=== PATIENT | female | born 1965 | race American Indian/Alaskan Native ===

== ENCOUNTER 2019-03-31 14:38 | Inpatient (IN) | payer MEDICAID ==
[2019-03-31] MEDS ORDERED: ZOFRAN IV ONE ×2 (15:20→17:45)
[2019-03-31] MEDS ORDERED: NACL 0.9% 1000 ML 1,000 ML IV ONE (15:20)
--- NOTE | 2019-03-31 15:20 | Event Note ---
ED Screening Note ED Screening Note: severe upper abd pain and diarrhea; also n/v tachy no cig/drugs/ etoh pmh pud ulcer bleed htn diverticu c diff UC fecal transplant failed x 2 psh g bypass back 10 rx norvasc clonodine lisinopril/hctz remoron hs ambien hs protonix carafate This initial assessment/diagnostic orders/clinical plan/treatment(s) is/are subject to change based on patients health status, clinical progression and re- assessment by fellow clinical providers in the ED. Further treatment and workup at subsequent clinical providers discretion. Patient/guardian urged not to elope from the ED as their condition may be serious if not clinically assessed and managed. Initial orders include: labs urine
[2019-03-31 15:42] LABS: Basophils % (Auto) 0.3 % (0.0-1.8); Eosinophils # (Auto) 0.1 K/mm3 (0.0-0.4); Eosinophils % (Auto) 1.7 % (0.0-4.3); Hematocrit 43.1 % (30.3-42.9); Hemoglobin 14.3 gm/dl (10.1-14.3); Lymphocytes # (Auto) 0.9 K/mm3 (1.2-5.4); Lymphocytes % (Auto) 17.8 % (13.4-35.0); Mean Corpuscular HGB Conc 33 % (30-34); Mean Corpuscular Volume 102 fl (79-97); Monocytes # (Auto) 0.3 K/mm3 (0.0-0.8); Monocytes % (Auto) 4.9 % (0.0-7.3); Platelet Count 324 K/mm3 (140-440); Red Blood Count 4.23 M/mm3 (3.65-5.03); Red Cell Distribution Width 17.1 % (13.2-15.2)
[2019-03-31 16:05] LABS: Alanine Aminotransferase 22 units/L (7-56); Albumin 4.3 g/dL (3.9-5); BUN/Creatinine Ratio 9; Blood Urea Nitrogen 8 mg/dL (7-17); Calcium 9.9 mg/dL (8.4-10.2); Hemolysis Index 25
[2019-03-31 16:24] LABS: Bilirubin,Direct < 0.2 mg/dL (0-0.2)
[2019-03-31 16:52] LABS: Bilirubin,Urine NEG (Negative); Blood,Urine NEG (Negative); Color,Urine Yellow (Yellow); Protein,Urine <15 mg/dL mg/dL (Negative); Urobilinogen,Urine < 2.0 mg/dL (<2.0)
[2019-03-31] MEDS ORDERED: MORPHINE IV ONE ×2 (17:45→21:50)
--- NOTE | 2019-03-31 18:28 | Emergency Department Report ---
ED Abdominal Pain HPI - General Chief Complaint: Abdominal Pain Stated Complaint: STOMACH PAIN/VOMITTING/DIARRHEA Time Seen by Provider: 03/31/19 15:17 Source: patient Mode of arrival: Ambulatory Limitations: No Limitations - History of Present Illness Initial Comments: Pt is a 53 yo female who presents to the ED with c/o upper abdominal pain that began a week ago. She has associated N/V/D. She states for the last two days she has had black, tarry stools. she states she is having approximately 14-15 episodes of diarrhea per day. 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 Pt states that she spoke with Dr. Day, bariatric surgery who recommended for her to be evaluated in the ED. Severity scale (0 -10): 3 - Related Data Home Medications Medication Instructions Recorded Confirmed Last Taken ALPRAZolam [Xanax TAB] 0.5 mg PO TID PRN 04/01/19 04/01/19 Unknown Carafate 04/01/19 Unknown Lisinopril [Zestril TAB] 1 tab PO DAILY 04/01/19 04/01/19 Unknown Mirtazapine [Remeron 15mg TAB] 15 mg PO QHS 04/01/19 04/01/19 Unknown Ondansetron [Zofran TAB] 1 tab PO PRN 04/01/19 Unknown Oxycodone HCl/Acetaminophen 1 each PO Q6HR PRN 04/01/19 04/01/19 Unknown [Percocet 10/325 mg] Pantoprazole [Protonix INJ] 40 mg IV BID 04/01/19 04/01/19 Unknown Promethazine [Phenergan] 25 mg PO Q6HR PRN 04/01/19 04/01/19 Unknown Zolpidem [Ambien] 10 mg PO QHS 04/01/19 04/01/19 Unknown Allergies Allergy/AdvReac Type Severity Reaction Status Date / Time hydralazine Allergy Unknown Verified 03/31/19 14:41 NSAIDS (Non-Steroidal Allergy Unknown Verified 03/31/19 14:41 Anti-Inflamma tramadol Allergy Unknown Verified 03/31/19 14:41 metronidazole [From Flagyl] AdvReac Vomiting Verified 03/31/19 15:17 ED Review of Systems ROS: Stated complaint: STOMACH PAIN/VOMITTING/DIARRHEA Other details as noted in HPI Comment: All other systems reviewed and negative ED Past Medical Hx - Past Medical History Hx Hypertension: Yes - Surgical History Additional Surgical History: back, gastric bypass - Social History Smoking Status: Never Smoker Substance Use Type: None - Medications Home Medications: Home Medications Medication Instructions Recorded Confirmed Last Taken Type ALPRAZolam [Xanax TAB] 0.5 mg PO TID PRN 04/01/19 04/01/19 Unknown History Carafate 04/01/19 Unknown History Lisinopril [Zestril TAB] 1 tab PO DAILY 04/01/19 04/01/19 Unknown History Mirtazapine [Remeron 15mg TAB] 15 mg PO QHS 04/01/19 04/01/19 Unknown History Ondansetron [Zofran TAB] 1 tab PO PRN 04/01/19 Unknown History Oxycodone HCl/Acetaminophen 1 each PO Q6HR PRN 04/01/19 04/01/19 Unknown History [Percocet 10/325 mg] Pantoprazole [Protonix INJ] 40 mg IV BID 04/01/19 04/01/19 Unknown History Promethazine [Phenergan] 25 mg PO Q6HR PRN 04/01/19 04/01/19 Unknown History Zolpidem [Ambien] 10 mg PO QHS 04/01/19 04/01/19 Unknown History ED Physical Exam - General Limitations: No Limitations General appearance: alert, in no apparent distress - Head Head exam: Present: atraumatic, normocephalic - Eye Eye exam: Present: normal appearance - ENT ENT exam: Present: mucous membranes dry (mildly) - Respiratory Respiratory exam: Present: normal lung sounds bilaterally. Absent: respiratory distress, wheezes, rales, rhonchi, stridor, chest wall tenderness, accessory muscle use, decreased breath sounds, prolonged expiratory - Cardiovascular Cardiovascular Exam: Present: normal rhythm, tachycardia (mildly ), normal heart sounds. Absent: systolic murmur, diastolic murmur, rubs, gallop - GI/Abdominal GI/Abdominal exam: Present: soft, tenderness (epigastric and LUQ), normal bowel sounds. Absent: distended, guarding, rebound, rigid - Rectal Rectal exam: Present: normal inspection, normal rectal tone, heme (+) stool, other (green/dark stool present in the rectal vault, no bright red blood present, hemocult (+) for blood, no external or internal hemorrhoids, talk show host: ALVINA cedeño). Absent: hemorrhoids, mass - Neurological Exam Neurological exam: Present: alert, oriented X3 - Psychiatric Psychiatric exam: Present: normal affect, normal mood - Skin Skin exam: Present: warm, dry, intact ED Course Vital Signs 03/31/19 03/31/19 03/31/19 15:17 20:57 21:08 Temperature 97.4 F L Pulse Rate 124 H 102 H Respiratory 20 18 18 Rate Blood Pressure Blood Pressure 181/119 187/120 [Right] O2 Sat by Pulse 99 100 Oximetry 03/31/19 03/31/19 21:58 21:59 Temperature Pulse Rate 82 Respiratory 16 Rate Blood Pressure 168/92 Blood Pressure 168/92 [Right] O2 Sat by Pulse 97 Oximetry - Consultations Consultation #1: 03/31/19 18:27 spoke with the PA for Dr. Day, bariatric surgery who states that Dr. James, bariatric surgery is who did her Geoff-en-Y and if surgical consultation was needed related to her Geoff-en-Y then Dr. James would need to be consulted. Consultation #2: 03/31/19 21:[address] Moreno, GI who advised to give IV protonix and to admit to the hospitalist and will consult on patient in the morning. Consultation #3: 03/31/19 21:[address] Grant, hospitalist who recommended to lower patients blood pressure and will accept and resume care of patient and admit patient to the hospital ED Medical Decision Making - Lab Data Result diagrams: 03/31/19 23:04 03/31/19 15:30 Lab Results 03/31/19 03/31/19 03/31/19 Range/Units 13:55 15:30 15:30 WBC 5.3 (4.5-11.0) K/mm3 RBC 4.23 (3.65-5.03) M/mm3 Hgb 14.3 (10.1-14.3) gm/dl Hct 43.1 H (30.3-42.9) % MCV 102 H (79-97) fl MCH 34 H (28-32) pg MCHC 33 (30-34) % RDW 17.1 H (13.2-15.2) % Plt Count 324 (140-440) K/mm3 Lymph % (Auto) 17.8 (13.4-35.0) % [place] % (Auto) 4.9 (0.0-7.3) % Eos % (Auto) 1.7 (0.0-4.3) % Baso % (Auto) 0.3 (0.0-1.8) % Lymph # 0.9 L (1.2-5.4) K/mm3 [place] # 0.3 (0.0-0.8) K/mm3 Eos # 0.1 (0.0-0.4) K/mm3 Baso # 0.0 (0.0-0.1) K/mm3 Seg Neutrophils % 75.3 H (40.0-70.0) % Seg Neutrophils # 4.0 (1.8-7.7) K/mm3 Sodium 134 L (137-145) mmol/L Potassium 4.1 (3.6-5.0) mmol/L Chloride 98.4 (98-107) mmol/L Carbon Dioxide 19 L (22-30) mmol/L Anion Gap 21 mmol/L BUN 8 (7-17) mg/dL Creatinine 0.9 (0.7-1.2) mg/dL Estimated GFR > 60 ml/min BUN/Creatinine Ratio 9 % Glucose 115 H (65-100) mg/dL Calcium 9.9 (8.4-10.2) mg/dL Total Bilirubin 0.20 (0.1-1.2) mg/dL Direct Bilirubin < 0.2 (0-0.2) mg/dL Indirect Bilirubin 0.0 mg/dL AST 39 (5-40) units/L ALT 22 (7-56) units/L Alkaline Phosphatase 188 H (35-129) units/L Total Protein 8.2 (6.3-8.2) g/dL Albumin 4.3 (3.9-5) g/dL Albumin/Globulin Ratio 1.1 % Lipase 23 (13-60) units/L Urine Color Yellow (Yellow) Urine Turbidity Clear (Clear) Urine pH 6.0 (5.0-7.0) Ur Specific [place] 1.013 (1.003-1.030) Urine Protein <15 mg/dl (Negative) mg/dL Urine Glucose (UA) Neg (Negative) mg/dL Urine Ketones Neg (Negative) mg/dL Urine Blood Neg (Negative) Urine Nitrite Neg (Negative) Urine Bilirubin Neg (Negative) Urine Urobilinogen < 2.0 (<2.0) mg/dL Ur Leukocyte Esterase Mod (Negative) Urine WBC (Auto) 1.0 (0.0-6.0) /HPF Urine RBC (Auto) 2.0 (0.0-6.0) /HPF U Epithel Cells (Auto) 1.0 (0-13.0) /HPF Vital Signs 03/31/19 03/31/19 03/31/19 15:17 20:57 21:08 Temperature 97.4 F L Pulse Rate 124 H 102 H Respiratory 20 18 18 Rate Blood Pressure Blood Pressure 181/119 187/120 [Right] O2 Sat by Pulse 99 100 Oximetry 03/31/19 03/31/19 21:58 21:59 Temperature Pulse Rate 82 Respiratory 16 Rate Blood Pressure 168/92 Blood Pressure 168/92 [Right] O2 Sat by Pulse 97 Oximetry - Radiology Data Radiology results: report reviewed PROCEDURE: CT ABDOMEN PELVIS W CON TECHNIQUE: Computerized axial tomography of the abdomen and pelvis was performed after the IV injection of iodinated nonionic contrast. CT DOSE LENGTH PRODUCT: 1263.6 mGycm HISTORY: upper abd pain, hx of PUD, Gastric bypass, c-diff COMPARISONS: None . FINDINGS: Lower Lung sanchez: Minimal linear atelectasis seen in the lung bases. Ztxgc-ql-bcjtuxse sized pericardial effusion appears to be partially visualized. Upper Abdomen: Gallbladder is surgically absent. The liver, adrenal glands, the pancreas and spleen are unremarkable. Postsurgical changes seen in the stomach and a loop of bowel in the left mi d abdomen. There may have been previous gastric bypass surgery. Gastric mucosal folds mildly prominent. I cannot exclude gastritis. Kidneys, Ureters and Urinary bladder: No abnormalities are seen. Retroperitoneum: Abdominal aorta appears normal. Nonspecific subcentimeter lymph nodes are seen in the retroperitoneum. No pathologically enlarged lymph nodes are identified. Bowel: Rectum appears to be fluid-filled and otherwise unremarkable. No evidence of bowel obstruction. No ascites or free intraperitoneal gas is seen. Normal-appearing appendix is seen in the right lower quadrant. Reproductive organs: Uterus and adnexa show no focal abnormalities. Other: Postsurgical changes visualized in the lumbar spine at the L5-S1 level. Spacing devices in place. There appears to have been prior fusion procedure at this level. Schmorl's is also seen superior endplate L1 level. IMPRESSION: Uukrp-jz-yweuoxxy sized pericardial effusion appears to be partially visualized. Prior cholecystectomy. Previous gastric bypass surgery suspected. Gastric mucosal folds appear prominent. I cannot exclude gastritis. No other abnormalities are identified. This document is electronically signed by Edenilson Oliva MD., Mar 31 2019 10:20:49 PM ET - Medical Decision Making Pt is a 53 yo female who presents to the ED with c/o upper abdominal pain that began a week ago. She has associated N/V/D. She states for the last two days she has had black, tarry stools. she states she is having approximately 14-15 episodes of diarrhea per day. 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 Pt states that she spoke with Dr. Day, bariatric surgery who recommended for her to be evaluated in the ED. hemoccult was positive. CT abd pelvis shows Sewuu-we-tceflomj sized pericardial effusion appears to be partially visualized. Prior cholecystectomy. Previous gastric bypass surgery suspected. Gastric mucosal folds appear prominent. I cannot exclude gastritis. No other abnormalities are identified. spoke with Dr. Moreno, GI who will consult on patient in AM and advised to give 40 mg of protonix IV. Discussed with Dr. Grant, hospitalist who will admit pt to the hospital and accept and resume care of patient, advised to order Cdiff and place pt on contact precautions. Critical care attestation.: If time is entered above; I have spent that time in minutes in the direct care of this critically ill patient, excluding procedure time. ED Disposition Clinical Impression: Pericardial effusion, Heme positive stool, Nausea vomiting and diarrhea Abdominal pain Qualifiers: Abdominal location: upper abdomen, unspecified Qualified Code(s): R10.10 - Upper abdominal pain, unspecified Gastritis Qualifiers: Gastritis type: unspecified gastritis Chronicity: acute Gastritis bleeding: with bleeding Qualified Code(s): K29.01 - Acute gastritis with bleeding Disposition: OP ADMIT IP TO THIS HOSP Is pt being admited?: Yes Does the pt Need Aspirin: No Condition: Stable Time of Disposition: 21:54
[2019-03-31] MEDS ORDERED: ALUM-MAG HYDROX-SIMETH 200-200-20MG/5ML PO ONE (19:31)
[2019-03-31] MEDS ORDERED: LIDOCAINE VISCOUS 2% PO ONE (19:31)
[2019-03-31] MEDS ORDERED: BENTYL PO ONE ×2 (19:32→21:00)
--- NOTE | 2019-03-31 21:22 | Cat Scan Report ---
PROCEDURE: CT ABDOMEN PELVIS W CON TECHNIQUE: Computerized axial tomography of the abdomen and pelvis was performed after the IV inject ion of iodinated nonionic contrast. CT DOSE LENGTH PRODUCT: 1263.6 mGycm HISTORY: upper abd pain, hx of PUD, Gastric bypass, c-diff COMPARISONS: None . FINDINGS: Lower Lung sanchez: Minimal linear atelectasis seen in the lung bases. Jqtwl-er-lzyepuyl sized perica rdial effusion appears to be partially visualized. Upper Abdomen: Gallbladder is surgically absent. The liver, adrenal glands, the pancreas and spleen are unremarkable. Postsurgical changes seen in the stomach and a loop of bowel in the left mid abdome n. There may have been previous gastric bypass surgery. Gastric mucosal folds mildly prominent. I can not exclude gastritis. Kidneys, Ureters and Urinary bladder: No abnormalities are seen. Retroperitoneum: Abdominal aorta appears normal. Nonspecific subcentimeter lymph nodes are seen in the retroperitoneum. No pathologically enlarged ly mph nodes are identified. Bowel: Rectum appears to be fluid-filled and otherwise unremarkable. No evidence of bowel obstructio n. No ascites or free intraperitoneal gas is seen. Normal-appearing appendix is seen in the right low er quadrant. Reproductive organs: Uterus and adnexa show no focal abnormalities. Other: Postsurgical changes visualized in the lumbar spine at the L5-S1 level. Spacing devices in [place]. There appears to have been prior fusion procedure at this level. Schmorl's is also seen superior endplate L1 level. IMPRESSION: Blfup-er-vankqcky sized pericardial effusion appears to be partially visualized. Prior cholecystectomy. Previous gastric bypass surgery suspected. Gastric mucosal folds appear prominent. I cannot exclude gastritis. No other abnormalities are identified. This document is electronically signed by Edenilson Oliva MD., Mar 31 2019 10:20:49 PM ET
[2019-03-31] MEDS ORDERED: PROTONIX IV ONE (21:44)
[2019-03-31] MEDS ORDERED: NORMODYNE IV ONE (21:47)
[2019-03-31] MEDS ORDERED: TYLENOL PO PRN (22:46)
[2019-03-31] MEDS ORDERED: ZOFRAN IV PRN (22:46)
[2019-03-31] MEDS ORDERED: MORPHINE IV PRN (22:51)
[2019-03-31 23:22] LABS: Hematocrit 38.5 % (30.3-42.9); Hemoglobin 12.5 gm/dl (10.1-14.3)
--- NOTE | 2019-03-31 23:36 | History and Physical Report ---
History of Present Illness Date of examination: 03/31/19 Date of admission: 03/31/19 22:46 Chief complaint: Upper abdominal pain History of present illness: Patient is a 53-year-old -[place] female with history of celiac disease and multiple GI problems including C. difficile colitis, who presented to the ED on account of 5 days' history of epigastric pain. She described it as sharp in character, rated 10 over 10, nonradiating and constant in duration. Pain is worse with oral intake and no known relieving factors. She has associated diarrhea times multiple episodes, passage of dark tarry stool, nausea with vomiting, palpitation, generalized weakness, headaches and dizziness. No chest pain, shortness of breath, fever, chills, syncope or loss of consciousness. Past History Past Medical History: hypertension, other (colitis, diverticulitis, celiac disease, C. difficile colitis, small bowel obstruction) Past Surgical History: Other (status post fecal implants 2, back surgery, g astric bypass, left wrist surgery) Social history: no significant social history (patient denies tobacco, alcohol or illicit drug use) Family history: other (grandmother from colon cancer in her 60s) Medications and Allergies Allergies Allergy/AdvReac Type Severity Reaction Status Date / Time hydralazine Allergy Unknown Verified 03/31/19 14:41 NSAIDS (Non-Steroidal Allergy Unknown Verified 03/31/19 14:41 Anti-Inflamma tramadol Allergy Unknown Verified 03/31/19 14:41 metronidazole [From Flagyl] AdvReac Vomiting Verified 03/31/19 15:17 Active Meds: Active Medications Acetaminophen (Tylenol) 650 mg PO Q4H PRN PRN Reason: Pain MILD(1-3)/Fever >100.5/WRAY Hydromorphone HCl (Dilaudid) 1 mg IV Q3H PRN PRN Reason: Pain , Severe (7-10) Sodium Chloride (Nacl 0.9% 1000 Ml) 1,000 mls @ 100 mls/hr IV DIRECT THEO Labetalol HCl (Normodyne) 10 mg IV Q4H PRN PRN Reason: Blood Pressure Ondansetron HCl (Zofran) 4 mg IV Q4H PRN PRN Reason: Nausea And Vomiting Pantoprazole Sodium (Protonix) 40 mg IV BID THEO Promethazine HCl (Phenergan) 25 mg [place] Q6H PRN PRN Reason: Nausea And Vomiting Sodium Chloride (Sodium Chloride Flush Syringe 10 Ml) 10 ml IV BID THEO Sodium Chloride (Sodium Chloride Flush Syringe 10 Ml) 10 ml IV PRN PRN PRN Reason: LINE FLUSH Zolpidem Tartrate (Ambien) 5 mg PO QHS PRN PRN Reason: Insomnia Review of Systems All systems: negative (except as documented in the HPI, 14 point system reviewed were negative) Exam - Constitutional Vitals: Temp Pulse Resp BP Pulse Ox 97.4 F L 82 16 168/92 97 03/31/19 15:17 03/31/19 21:59 03/31/19 21:59 03/31/19 21:59 03/31/19 21:59 General appearance: Present: no acute distress - EENT Eyes: Present: PERRL, EOM intact ENT: hearing intact, clear oral mucosa - Neck Neck: Present: supple - Respiratory Respiratory effort: normal Respiratory: bilateral: CTA - Cardiovascular Rhythm: regular Heart Sounds: Present: S1 & S2 - Extremities Extremities: No edema Peripheral Pulses: within normal limits - Abdominal General gastrointestinal: Present: soft, tender (epigastric), non-distended, normal bowel sounds Female genitourinary: Present: deferred - Integumentary Integumentary: Present: clear, warm, dry - Musculoskeletal Musculoskeletal: strength equal bilaterally - Psychiatric Psychiatric: appropriate mood/affect, intact judgment & insight - Neurologic Neurologic: CNII-XII intact Results - Labs CBC & Chem 7: 03/31/19 23:04 03/31/19 15:30 Labs: Laboratory Last Values WBC 5.3 K/mm3 (4.5-11.0) 03/31/19 15:30 RBC 4.23 M/mm3 (3.65-5.03) 03/31/19 15:30 Hgb 12.5 gm/dl (10.1-14.3) 03/31/19 23:04 Hct 38.5 % (30.3-42.9) 03/31/19 23:04 MCV 102 fl (79-97) H 03/31/19 15:30 MCH 34 pg (28-32) H 03/31/19 15:30 MCHC 33 % (30-34) 03/31/19 15:30 RDW 17.1 % (13.2-15.2) H 03/31/19 15:30 Plt Count 324 K/mm3 (140-440) 03/31/19 15:30 Lymph % (Auto) 17.8 % (13.4-35.0) 03/31/19 15:30 [place] % (Auto) 4.9 % (0.0-7.3) 03/31/19 15:30 Eos % (Auto) 1.7 % (0.0-4.3) 03/31/19 15:30 Baso % (Auto) 0.3 % (0.0-1.8) 03/31/19 15:30 Lymph # 0.9 K/mm3 (1.2-5.4) L 03/31/19 15:30 [place] # 0.3 K/mm3 (0.0-0.8) 03/31/19 15:30 Eos # 0.1 K/mm3 (0.0-0.4) 03/31/19 15:30 Baso # 0.0 K/mm3 (0.0-0.1) 03/31/19 15:30 Seg Neutrophils % 75.3 % (40.0-70.0) H 03/31/19 15:30 Seg Neutrophils # 4.0 K/mm3 (1.8-7.7) 03/31/19 15:30 Sodium 134 mmol/L (137-145) L 03/31/19 15:30 Potassium 4.1 mmol/L (3.6-5.0) 03/31/19 15:30 Chloride 98.4 mmol/L (98-107) 03/31/19 15:30 Carbon Dioxide 19 mmol/L (22-30) L 03/31/19 15:30 21 mmol/L 03/31/19 15:30 BUN 8 mg/dL (7-17) 03/31/19 15:30 0.9 mg/dL (0.7-1.2) 03/31/19 15:30 Estimated GFR > 60 ml/min 03/31/19 15:30 9 % 03/31/19 15:30 Glucose 115 mg/dL (65-100) H 03/31/19 15:30 Calcium 9.9 mg/dL (8.4-10.2) 03/31/19 15:30 0.20 mg/dL (0.1-1.2) 03/31/19 15:30 < 0.2 mg/dL (0-0.2) 03/31/19 15:30 0.0 mg/dL 03/31/19 15:30 AST 39 units/L (5-40) 03/31/19 15:30 ALT 22 units/L (7-56) 03/31/19 15:30 188 units/L (35-129) H 03/31/19 15:30 8.2 g/dL (6.3-8.2) 03/31/19 15:30 4.3 g/dL (3.9-5) 03/31/19 15:30 1.1 % 03/31/19 15:30 23 units/L (13-60) 03/31/19 15:30 Yellow (Yellow) 03/31/19 13:55 Clear (Clear) 03/31/19 13:55 6.0 (5.0-7.0) 03/31/19 13:55 Ur Specific [place] 1.013 (1.003-1.030) 03/31/19 13:55 <15 mg/dl mg/dL (Negative) 03/31/19 13:55 Neg mg/dL (Negative) 03/31/19 13:55 Neg mg/dL (Negative) 03/31/19 13:55 Neg (Negative) 03/31/19 13:55 Neg (Negative) 03/31/19 13:55 Neg (Negative) 03/31/19 13:55 < 2.0 mg/dL (<2.0) 03/31/19 13:55 Ur Leukocyte Esterase Mod (Negative) 03/31/19 13:55 1.0 /HPF (0.0-6.0) 03/31/19 13:55 2.0 /HPF (0.0-6.0) 03/31/19 13:55 U Epithel Cells (Auto) 1.0 /HPF (0-13.0) 03/31/19 13:55 Assessment and Plan Assessment and plan: Melena -On IV Protonix -H/H stable, will monitor and transfuse patient as needed -GI consulted in the ED Intractable Epigastric pain -Probably due to gastritis -CT abdomen/pelvis suspicious for gastritis and smallermoderate pericardial effusion -On IV Protonix and when necessary narcotics Intractable nausea and vomiting -On PRN antiemetics Hypertensive urgency -On when necessary IV antihypertensive, will monitor blood pressure Acute on chronic diarrhea -Status post fecal Implants 2 with failure -We will check C. difficile toxin -Contact isolation Smallmoderate pericardial effusion per imaging -Further evaluation with echocardiogram Acute metabolic acidosis -On IV fluid, will monitor bicarbonate level Mild hyponatremia -On IV fluid, will monitor sodium level DVT prophylaxis with SCD Disposition: For discharge when medically stable Time spent: 38 minutes
[2019-04-01] MEDS: ZOFRAN IV PRN ×3 (01:21→15:03)
[2019-04-01] MEDS: DILAUDID IV PRN ×4 (01:21→11:16)
[2019-04-01] MEDS: NORMODYNE IV PRN ×2 (01:22→21:51)
[2019-04-01] MEDS: AMBIEN PO PRN ×2 (01:23→23:42)
[2019-04-01] MEDS: NACL 0.9% 1000 ML 1,000 ML IV SCH ×2 (02:23→15:03)
[2019-04-01] MEDS: SODIUM CHLORIDE FLUSH SYRINGE 10 ML IV PRN (04:16)
[2019-04-01 06:54] LABS: Hematocrit 35.5 % (30.3-42.9); Hemoglobin 11.7 gm/dl (10.1-14.3)
[2019-04-01 07:14] LABS: BUN/Creatinine Ratio 17; Blood Urea Nitrogen 10 mg/dL (7-17); Calcium 8.9 mg/dL (8.4-10.2); Hemolysis Index 10
--- NOTE | 2019-04-01 09:59 | Gastroenterology Consultation ---
History of Present Illness - Reason for Consult Consult date: 04/01/19 epigastric pain, melena Requesting physician: MANISHA HALL - History of Present Illness This is a 53 yo female on whom I have been consulted for evaluation of epigastric pain, melena, and nausea/vomiting/diarrhea. 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 She reports having had chronic abdominal pain, nausea/vomiting, and diarrhea since her bypass surgery. She has had multiple admissions and ED visits at multiple different hospitals over the years. States she had worsening abdominal pain since Wednesday along with persistent diarrhea with intermittent hematochezia and black tarry stools. In the ED, she had CT abdomen showing possible gastritis and pericardial effusion. She denies chest pain, sob. She states she has been following up with Dr. Day for bariatric surgery and discussed revision of her gastric bypass. Per chart review, patient is well known to [facility] and was seen by Dr. Euegne in the past with last visit in 05/2017 noted a hospital admission for opioid overdose and stopping tincture of opium. She had had extensive work up for diarrhea and refractory to many medications including Viberzi (elevated LFTs), imodium, lomotil, welchol, questran, and creon. She states she had two fecal transplants for recurrent C diff with last one in 08/[address] [facility]. She also had multiple EGDs for her abdominal pain as well as a diagnostic lap with Dr. James in 2013 showing normal findings other than narrowing at the GE ju nction. EGDs did not show stenosis. Reports having EGD a few months ago and was told that she had multiple ulcers. Past History Past Medical History: GERD, hypertension, other (colitis, diverticulitis, celiac disease, C. difficile colitis, small bowel obstruction) Past Surgical History: Other (status post fecal implants 2, back surgery, gastric bypass, left wrist surgery) Social history: no significant social history (patient denies tobacco, alcohol or illicit drug use) Family history: other (grandmother from colon cancer in her 60s) Medications and Allergies Allergies Allergy/AdvReac Type Severity Reaction Status Date / Time hydralazine Allergy Unknown Verified 03/31/19 14:41 NSAIDS (Non-Steroidal Allergy Unknown Verified 03/31/19 14:41 Anti-Inflamma tramadol Allergy Unknown Verified 03/31/19 14:41 metronidazole [From Flagyl] AdvReac Vomiting Verified 03/31/19 15:17 Home Medications Medication Instructions Recorded Confirmed Last Taken Type ALPRAZolam [Xanax TAB] 0.5 mg PO TID PRN 04/01/19 04/01/19 Unknown History Carafate 04/01/19 Unknown History Lisinopril [Zestril TAB] 1 tab PO DAILY 04/01/19 04/01/19 Unknown History Mirtazapine [Remeron 15mg TAB] 15 mg PO QHS 04/01/19 04/01/19 Unknown History Ondansetron [Zofran TAB] 1 tab PO PRN 04/01/19 Unknown History Oxycodone HCl/Acetaminophen 1 each PO Q6HR PRN 04/01/19 04/01/19 Unknown History [Percocet 10/325 mg] Pantoprazole [Protonix INJ] 40 mg IV BID 04/01/19 04/01/19 Unknown History Promethazine [Phenergan] 25 mg PO Q6HR PRN 04/01/19 04/01/19 Unknown History Zolpidem [Ambien] 10 mg PO QHS 04/01/19 04/01/19 Unknown History Active Meds: Active Medications Acetaminophen (Tylenol) 650 mg PO Q4H PRN PRN Reason: Pain MILD(1-3)/Fever >100.5/WRAY Al Hydrox/Mg Hydrox/Simethicone (Alum-Mag Hydrox-Simeth [phone]/5ml) 15 ml PO Q4H PRN PRN Reason: Indigestion Hydromorphone HCl (Dilaudid) 1 mg IV Q3H PRN PRN Reason: Pain , Severe (7-10) Last Admin: 04/01/19 07:48 Dose: 1 mg Documented by: Sodium Chloride (Nacl 0.9% 1000 Ml) 1,000 mls @ 100 mls/hr IV DIRECT THEO Last Admin: 04/01/19 02:23 Dose: 100 mls/hr Documented by: Labetalol HCl (Normodyne) 10 mg IV Q4H PRN PRN Reason: Blood Pressure Last Admin: 04/01/19 01:22 Dose: 10 mg Documented by: Ondansetron HCl (Zofran) 4 mg IV Q4H PRN PRN Reason: Nausea And Vomiting Last Admin: 04/01/19 07:48 Dose: 4 mg Documented by: Pantoprazole Sodium (Protonix) 40 mg IV BID THEO Promethazine HCl (Phenergan) 25 mg ME Q6H PRN PRN Reason: Nausea And Vomiting Sodium Chloride (Sodium Chloride Flush Syringe 10 Ml) 10 ml IV BID THEO Sodium Chloride (Sodium Chloride Flush Syringe 10 Ml) 10 ml IV PRN PRN PRN Reason: LINE FLUSH Last Admin: 04/01/19 04:16 Dose: 10 ml Documented by: Zolpidem Tartrate (Ambien) 5 mg PO QHS PRN PRN Reason: Insomnia Last Admin: 04/01/19 01:23 Dose: 5 mg Documented by: Review of Systems - Review of Systems All systems: negative Constitutional: weight loss Cardiovascular: no chest pain Respiratory: no cough Gastrointestinal: abdominal pain, nausea, vomiting, diarrhea, melena, hematochezia Neurological: weakness Psychiatric: anxiety Exam - Constitutional Vital Signs: Temp Pulse Resp BP Pulse Ox 97.8 F 86 16 148/84 99 04/01/19 05:52 04/01/19 05:52 04/01/19 05:52 04/01/19 05:52 04/01/19 05:52 General appearance: no acute distress - EENT Eyes: EOM intact ENT: hearing intact, clear oral mucosa - Neck Neck: supple - Respiratory Respiratory effort: normal Respiratory: bilateral: CTA - Cardiovascular Rhythm: regular Heart Sounds: Present: S1 & S2 Extremities: pulses intact - Gastrointestinal General gastrointestinal: Present: soft, tender, non-distended - Integumentary Integumentary: Present: clear, warm - Neurologic Neurological: alert and oriented x3 - Psychiatric Psychiatric: agitated - Labs CBC & Chem 7: 04/01/19 06:14 04/01/19 06:14 Lab Results: Laboratory Results - last 24 hr 03/31/19 03/31/19 03/31/19 13:55 15:30 15:30 WBC 5.3 RBC 4.23 Hgb 14.3 Hct 43.1 H MCV 102 H MCH 34 H MCHC 33 RDW 17.1 H Plt Count 324 Lymph % (Auto) 17.8 [place] % (Auto) 4.9 Eos % (Auto) 1.7 Baso % (Auto) 0.3 Lymph # 0.9 L [place] # 0.3 Eos # 0.1 Baso # 0.0 Seg Neutrophils % 75.3 H Seg Neutrophils # 4.0 Sodium 134 L Potassium 4.1 Chloride 98.4 Carbon Dioxide 19 L Anion Gap 21 BUN 8 Creatinine 0.9 Estimated GFR > 60 BUN/Creatinine Ratio 9 Glucose 115 H Calcium 9.9 Total Bilirubin 0.20 Direct Bilirubin < 0.2 Indirect Bilirubin 0.0 AST 39 ALT 22 Alkaline Phosphatase 188 H Total Protein 8.2 Albumin 4.3 Albumin/Globulin Ratio 1.1 Lipase 23 Urine Color Yellow Urine Turbidity Clear Urine pH 6.0 Ur Specific [place] 1.013 Urine Protein <15 mg/dl Urine Glucose (UA) Neg Urine Ketones Neg Urine Blood Neg Urine Nitrite Neg Urine Bilirubin Neg Urine Urobilinogen < 2.0 Ur Leukocyte Esterase Mod Urine WBC (Auto) 1.0 Urine RBC (Auto) 2.0 U Epithel Cells (Auto) 1.0 03/31/19 04/01/19 04/01/19 23:04 06:14 06:14 WBC RBC Hgb 12.5 11.7 Hct 38.5 35.5 MCV MCH MCHC RDW Plt Count Lymph % (Auto) [place] % (Auto) Eos % (Auto) Baso % (Auto) Lymph # [place] # Eos # Baso # Seg Neutrophils % Seg Neutrophils # Sodium 140 Potassium 3.6 Chloride 104.2 Carbon Dioxide 22 Anion Gap 17 BUN 10 Creatinine 0.6 L Estimated GFR > 60 BUN/Creatinine Ratio 17 Glucose 103 H Calcium 8.9 Total Bilirubin Direct Bilirubin Indirect Bilirubin AST ALT Alkaline Phosphatase Total Protein Albumin Albumin/Globulin Ratio Lipase Urine Color Urine Turbidity Urine pH Ur Specific [place] Urine Protein Urine Glucose (UA) Urine Ketones Urine Blood Urine Nitrite Urine Bilirubin Urine Urobilinogen Ur Leukocyte Esterase Urine WBC (Auto) Urine RBC (Auto) U Epithel Cells (Auto) - Imaging CT Scan: report reviewed Assessment and Plan This is a 53 yo female on whom I have been consulted for evaluation of epigastric pain, melena, and nausea/vomiting/diarrhea. 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 # Melena/hematochezia - reports of black stools and bloody stool per patient. Heme positive. - prior EGD a few months ago at outside hospital with ulcers per patient. - last flex sig in 11/2017 with only internal hemorrhoids. - Hgb downtrended but currently at her baseline at 11 range, likely due to hemo concentration. Rec: - monitor H/H. - clear liquid diet. - if H/H downtrend or patient has signs of active bleeding, will plan for EGD/colonoscopy. - Patient Problems (1) Abdominal pain Current Visit: Yes Status: Acute Qualifiers: Abdominal location: upper abdomen, unspecified Qualified Code(s): R10.10 - Upper abdominal pain, unspecified Plan to address problem: Chronic pain for many years since her bypass surgery in 2001. Evaluated at multiple hospitals and by multiple GI physicians. She also had multiple EGDs for her abdominal pain as well as a diagnostic lap with Dr. James in 2013 showing normal findings other than narrowing at the GE junction. EGDs did not show stenosis. Reports having EGD a few months ago and was told that she had multiple ulcers. - reports she has been on multiple antiacids including PPI and carafate. GI cocktails helps somewhat. Rec: - avoid narcotic as there's concern for long narcotic use and dependence. - continue with PPI - can start GI cocktail prn. (2) Nausea vomiting and diarrhea Current Visit: Yes Status: Acute Plan to address problem: Chronic diarrhea with negative work up in the past. Normal celiac panel, normal pancreatic elastase. H/o C diff failed multiple medications including flagyl, Po vancomycin, dificid, and leading to 2 fecal transplants in 08/[address] [facility]. reports prior treatment failure for diarrhea to Viberzi (increased LFTs), questran, Welchol, imodium, lomotil, and creon. - reports multiple liquid stools overnight. Rec: - check C diff toxin. - recommend follow up with Dr. Day for gastric bypass revision.
[2019-04-01 10:41] LABS: Hematocrit 37.9 % (30.3-42.9); Hemoglobin 12.5 gm/dl (10.1-14.3)
[2019-04-01] MEDS: ALUM-MAG HYDROX-SIMETH 200-200-20MG/5ML PO PRN (11:16)
[2019-04-01] MEDS: SODIUM CHLORIDE FLUSH SYRINGE 10 ML IV SCH ×2 (11:16→21:52)
[2019-04-01] MEDS: PROTONIX IV SCH ×2 (11:16→21:51)
--- NOTE | 2019-04-01 11:32 | Progress Note ---
Assessment and Plan Intractable Epigastric pain -Probably due to gastritis -CT abdomen/pelvis suspicious for gastritis and smallermoderate pericardial effusion -On IV Protonix and when necessary narcotics Melena -On IV Protonix -H/H stable, will monitor and transfuse patient as needed -GI consulted in the ED Intractable nausea and vomiting with abdominal pain -On PRN antiemetics Has h/o narcotic overdose will manage abdominla pain with caustion S/p Gastric bypass in 2001 with H/o of Stoma ulcer on protonix Following upwith Dr Chuy Day for possible revision Hypertensive urgency -On when necessary IV antihypertensive, will monitor blood pressure Acute on chronic diarrhea -Status post fecal Implants 2 with failure -We will check C. difficile toxin -Contact isolation Smallmoderate pericardial effusion per imaging -Further evaluation with Echocardiogram Acute metabolic acidosis -On IV fluid, will monitor bicarbonate level Mild hyponatremia -On IV fluid, will monitor sodium level DVT prophylaxis with SCD Disposition: For discharge when medically stable Time spent: 38 minutes Subjective Date of service: 04/01/19 Principal diagnosis: intractable epigastric pain, intactible N/V, hypertensive urrgency, acidoci Interval history: Patient is to have an abdominal pain with nausea vomiting and diarrhea. Has a history of ulcerative colitis. The last flareup was about 2011 Objective - Exam Narrative Exam: Constitutional: Well-nourished well-developed. In no distress Head: Normocephalic atraumatic Eyes: Pupils are equal round and reactive to light Nose: No enlarged turbinates, no septal deviation. Mouth: Moist mucous membranes. Neck: Supple no thyromegaly. No bruit. No JVD Heart: Regular rate and rhythm, S1-S2 normal. No rubs murmurs or gallop Lungs: Clear to auscultation bilaterally. no rales or rhonchi Abdomen: Soft, has epigastric tenderness. Bowel sound are present. Extremities: No edema, no cyanosis, no clubbing. Neuro: Alert oriented Oriented x3. No focal sensory or motor deficit. Skin: No rashes or hyperpigmented spots Musculoskeletal system: No joint pain or swelling Hematological: No petechia or subcutanous hemorrhages. Immunological: No multiple septic spots on the skin Lymphatic: No generalized lymphadenopathy Psychiatry: Euthymic. Calm. - Constitutional Vitals: Vital Signs - 12hr 03/31/19 04/01/19 04/01/19 23:57 01:22 01:42 Temperature 98.5 F Pulse Rate 96 H 96 H Respiratory 18 100 H Rate Blood Pressure 166/113 166/113 O2 Sat by Pulse 100 100 Oximetry 04/01/19 05:52 Temperature 97.8 F Pulse Rate 86 Respiratory 16 Rate Blood Pressure 148/84 O2 Sat by Pulse 99 Oximetry - Labs CBC & Chem 7: 04/01/19 09:34 04/01/19 06:14 Labs: Abnormal lab results 03/31/19 03/31/19 04/01/19 Range/Units 15:30 15:30 06:14 Hct 43.1 H (30.3-42.9) % MCV 102 H (79-97) fl MCH 34 H (28-32) pg RDW 17.1 H (13.2-15.2) % Lymph # 0.9 L (1.2-5.4) K/mm3 Seg Neutrophils % 75.3 H (40.0-70.0) % Sodium 134 L (137-145) mmol/L Carbon Dioxide 19 L (22-30) mmol/L Creatinine 0.6 L (0.7-1.2) mg/dL Glucose 115 H 103 H (65-100) mg/dL Alkaline Phosphatase 188 H (35-129) units/L
[2019-04-01] MEDS ORDERED: DILAUDID IV PRN (11:49)
[2019-04-01] MEDS: XANAX PO PRN (16:10)
[2019-04-01] MEDS: ROXICODONE PO PRN ×2 (16:11→21:51)
[2019-04-01] MEDS ORDERED: APRESOLINE IV PRN (16:28)
[2019-04-01 21:12] LABS: Hematocrit 35.6 % (30.3-42.9)
[2019-04-01] MEDS: REMERON PO SCH (23:44)
[2019-04-02] MEDS: ROXICODONE PO PRN ×5 (03:11→21:33)
[2019-04-02] MEDS: SODIUM CHLORIDE FLUSH SYRINGE 10 ML IV PRN (03:15)
[2019-04-02] MEDS: ZOFRAN IV PRN ×2 (03:15→08:44)
[2019-04-02 05:47] LABS: Basophils % (Auto) 0.9 % (0.0-1.8); Eosinophils # (Auto) 0.2 K/mm3 (0.0-0.4); Eosinophils % (Auto) 6.9 % (0.0-4.3); Hematocrit 35.3 % (30.3-42.9); Hemoglobin 11.6 gm/dl (10.1-14.3); Lymphocytes % (Auto) 29.3 % (13.4-35.0); Mean Corpuscular HGB Conc 33 % (30-34); Mean Corpuscular Volume 101 fl (79-97); Monocytes # (Auto) 0.4 K/mm3 (0.0-0.8); Monocytes % (Auto) 10.9 % (0.0-7.3); Platelet Count 276 K/mm3 (140-440); Red Blood Count 3.48 M/mm3 (3.65-5.03)
[2019-04-02 06:23] LABS: Alanine Aminotransferase 15 units/L (7-56); Albumin 3.7 g/dL (3.9-5); BUN/Creatinine Ratio 14; Blood Urea Nitrogen 7 mg/dL (7-17); Hemolysis Index 26
[2019-04-02] MEDS: NACL 0.9% 1000 ML 1,000 ML IV SCH (10:46)
[2019-04-02] MEDS: PROTONIX IV SCH ×2 (10:46→21:33)
[2019-04-02] MEDS: SODIUM CHLORIDE FLUSH SYRINGE 10 ML IV SCH ×2 (10:46→21:34)
[2019-04-02] MEDS: ALUM-MAG HYDROX-SIMETH 200-200-20MG/5ML PO PRN ×2 (10:57→16:11)
--- NOTE | 2019-04-02 11:38 | Progress Note ---
Assessment and Plan Epigastric pain -Probably due to gastritis versus stoma ulcer -CT abdomen/pelvis suspicious for gastritis and smallermoderate pericardial effusion -On IV Protonix and when necessary narcotics Discussed at length with the patient and her mother before insisting on increase in frequency of her narcotics Discussed at length with the freight rate clerk for his planning on EGD Melena -On IV Protonix -H/H stable, will monitor and transfuse patient as needed -GI consulted and following Intractable nausea and vomiting with abdominal pain -On PRN antiemetics Has h/o narcotic overdose will administer narcotics for abdominal pain with caution S/p Gastric bypass in 2001 with H/o of Stoma ulcer on protonix Following up with Dr Chuy Day for possible revision Hypertensive urgency -On when necessary IV antihypertensive, will monitor blood pressure Acute on chronic diarrhea -Status post fecal Implants 2 with failure -We will check C. difficile toxin -Contact isolation Smallmoderate pericardial effusion per imaging -Further evaluation with Echocardiogram Acute metabolic acidosis -On IV fluid, will monitor bicarbonate level Mild hyponatremia - corrected -On IV fluid, will monitor sodium level DVT prophylaxis with SCD Disposition: For discharge when medically stable Time spent: 40 minutes Discussed at length with patient and mother was in the room at the time of this evaluation is explaining possible causes of her symptoms and discussed in details the lab and radiological results. Subjective Date of service: 04/02/19 Principal diagnosis: intractable epigastric pain, intactible N/V, hypertensive urrgency, acidoci Interval history: Patient is still having abdominal pain with nausea vomiting and diarrhea. Had formal shots yesterday. One this morning. Denies any fever. Patient's mother in the room. Wants more frequent narcotics because of abdominal pain Objective - Exam Narrative Exam: Constitutional: Well-nourished well-developed. In no distress Head: Normocephalic atraumatic Eyes: Pupils are equal round and reactive to light Nose: No enlarged turbinates, no septal deviation. Mouth: Moist mucous membranes. Neck: Supple no thyromegaly. No bruit. No JVD Heart: Regular rate and rhythm, S1-S2 normal. No rubs murmurs or gallop Lungs: Clear to auscultation bilaterally. no rales or rhonchi Abdomen: Soft, has epigastric tenderness. Bowel sound are present. Extremities: No edema, no cyanosis, no clubbing. Neuro: Alert oriented Oriented x3. No focal sensory or motor deficit. Skin: No rashes or hyperpigmented spots Musculoskeletal system: No joint pain or swelling Hematological: No petechia or subcutanous hemorrhages. Immunological: No multiple septic spots on the skin Lymphatic: No generalized lymphadenopathy Psychiatry: Euthymic. Calm. - Constitutional Vitals: Vital Signs - 12hr 04/01/19 04/02/19 23:40 05:49 Temperature 97.3 F L 98.1 F Pulse Rate 83 85 Respiratory 18 18 Rate Blood Pressure 152/94 146/92 O2 Sat by Pulse 99 99 Oximetry - Labs CBC & Chem 7: 04/02/19 05:07 04/02/19 05:07 Labs: Abnormal lab results 04/02/19 04/02/19 Range/Units 05:07 05:07 WBC 3.3 L (4.5-11.0) K/mm3 RBC 3.48 L (3.65-5.03) M/mm3 MCV 101 H (79-97) fl MCH 33 H (28-32) pg RDW 17.0 H (13.2-15.2) % [place] % (Auto) 10.9 H (0.0-7.3) % Eos % (Auto) 6.9 H (0.0-4.3) % Lymph # 1.0 L (1.2-5.4) K/mm3 Seg Neutrophils # 1.7 L (1.8-7.7) K/mm3 Chloride 110.5 H (98-107) mmol/L Carbon Dioxide 19 L (22-30) mmol/L Creatinine 0.5 L (0.7-1.2) mg/dL Alkaline Phosphatase 133 H (35-129) units/L Albumin 3.7 L (3.9-5) g/dL
[2019-04-02] MEDS: XANAX PO PRN (11:43)
--- NOTE | 2019-04-02 15:53 | Consultation ---
New consultation from Dr. Cowan. REASON FOR CONSULTATION: Pericardial effusion. HISTORY OF PRESENT ILLNESS: The patient is a pleasant 53-year-old female with a complex chronic gastrointestinal disease including chronic abdominal pain, status post gastric bypass in 2001, who presents here on 03/31/2019 with 5 days of epigastric pain. Sharp pain, dark tarry stools, nausea, vomiting, weakness, headaches, dizziness. No chest pain, fevers, chills. No loss of consciousness. No rash. No blurred vision. She is seen on 3-tele. Her mother is at bedside as well. Currently, she states she feels better, still nauseous. No chest pain, but overall feels weak. PAST MEDICAL HISTORY: Colitis; diverticulitis; celiac disease, status post gastric bypass; C difficile colitis; small-bowel obstruction; hypertension; history of fecal transplant x 2; left wrist surgery. SOCIAL HISTORY: Nonsmoker, nondrinker. MEDICATIONS: Inpatient and outpatient medications reviewed. ALLERGIES: HYDRALAZINE, NSAIDS, FLAGYL, TRAMADOL. REVIEW OF SYSTEMS: As per HPI. PHYSICAL EXAMINATION: VITAL SIGNS: Blood pressure is 140/90. She is afebrile. Pulse rates in the 60s-80s, respirations 18, O2 sat is 99% on room air. GENERAL: This is a young female in no apparent distress, oriented x 3. HEENT: Sclerae anicteric. PERRLA. NECK: Supple. No masses, no JVD. CHEST: Clear to auscultation bilaterally. Good air movement. CARDIOVASCULAR: Regular rhythm, S1, S2. ABDOMEN: Soft, nontender, nondistended. Normoactive bowel sounds in 4 quadrants. No mass or bruits. EXTREMITIES: No cyanosis, clubbing, edema. Good peripheral pulses. SKIN: Warm, dry, and intact. No rashes. LABORATORY DATA: ECG is pending and abdomen and pelvis CT reveals questionable small to moderate sized pericardial effusion, prior cholecystectomy, previous gastric bypass. No acute abnormalities identified. WBC 3.3, hemoglobin 11.6, hematocrit 35, platelets 276. Potassium 3.6, bicarbonate 19, creatinine 0.5, albumin is 3.7. ASSESSMENT AND PLAN: In summary, this patient is a pleasant 53-year-old female with [id number] abdominal pain and melena in the milieu of chronic gastrointestinal disease, gastric ulcers, and chronic narcotic use for pain. Incidental finding of [id number] pericardial effusion on abdominal CT. We will check EKG and echocardiogram. No cardiac symptoms at this time. We will follow along with you. Thank you for this consultation. JOB# [id number] SBMichelle/NTS
[2019-04-02] MEDS: LIDOCAINE VISCOUS 2% PO PRN (16:11)
[2019-04-02] MEDS: NORMODYNE IV PRN ×2 (16:12→19:25)
--- NOTE | 2019-04-02 16:43 | Gastroenterology Progress Note ---
Assessment and Plan This is a 53 yo female on whom I have been consulted for evaluation of epigastric pain, melena, and nausea/vomiting/diarrhea. 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 # Melena/hematochezia - reports of black stools and bloody stool per patient. Heme positive. - prior EGD a few months ago at outside hospital with ulcers per patient. - last flex sig in 11/2017 with only internal hemorrhoids. - H/H remained stable at her previous baseline. Rec: - monitor H/H. - will plan for EGD to evaluate for melena and epigastric pain once pericardial effusion is evaluated and patient assessed for cardiac risks for sedation. TTE pending. - Patient Problems (1) Abdominal pain Current Visit: Yes Status: Acute Qualifiers: Abdominal location: upper abdomen, unspecified Qualified Code(s): R10.10 - Upper abdominal pain, unspecified Plan to address problem: Chronic pain for many years since her bypass surgery in 2001. Evaluated at multiple hospitals and by multiple GI physicians. She also had multiple EGDs for her abdominal pain as well as a diagnostic lap with Dr. James in 2013 showing normal findings other than narrowing at the GE junction. EGDs did not show stenosis. Reports having EGD a few months ago and was told that she had multiple ulcers. - reports she has been on multiple antiacids including PPI and carafate. GI cocktails helps somewhat. Rec: - avoid narcotic as there's concern for long narcotic use and dependence. - continue with PPI - added GI cocktail with maalox and lidocaine viscous prn. - recommend following up with her bariatric surgeon. Patient undergoing work up for possible revision. (2) Nausea vomiting and diarrhea Current Visit: Yes Status: Acute Plan to address problem: Chronic diarrhea with negative work up in the past. Normal celiac panel, normal pancreatic elastase. H/o C diff failed multiple medications including flagyl, Po vancomycin, dificid, and leading to 2 fecal transplants in 08/2018 at [facility]. reports prior treatment failure for diarrhea to Viberzi (increased LFTs), questran, Welchol, imodium, lomotil, and creon. - reports multiple liquid stools overnight. Rec: - check C diff toxin. per nursing, sample sent down and pending results. - recommend follow up with Dr. Day for gastric bypass revision. Subjective Date of service: 04/02/19 Principal diagnosis: intractable epigastric pain, intactible N/V, hypertensive urrgency, acidoci Interval history: Patient reports continued abdominal pain, nausea and one episode of vomiting. No change from her chronic symptoms. Requests for GI cocktail. Objective - Constitutional Vitals: Temp Pulse Resp BP Pulse Ox 97.0 F L 92 H 15 167/101 100 04/02/19 15:52 04/02/19 16:12 04/02/19 15:52 04/02/19 16:12 04/02/19 15:52 - EENT ENT: hearing intact, clear oral mucosa, dentition normal - Neck Neck: supple, normal ROM - Respiratory Respiratory effort: normal Respiratory: bilateral: CTA - Cardiovascular Rhythm: regular - Extremities Extremities: pulses intact, No edema, normal color, Full ROM - Gastrointestinal General gastrointestinal: Present: soft, tender, non-distended, normal bowel sounds - Integumentary Integumentary: Present: clear, warm, dry - Neurologic Neurological: alert and oriented x3 - Labs CBC & Chem 7: 04/02/19 05:07 04/02/19 05:07 Labs: Laboratory Results - last 24 hr 03/31/19 04/01/19 04/02/19 09:06 21:05 05:07 WBC 3.3 L RBC 3.48 L Hgb 12.0 11.6 Hct 35.6 35.3 MCV 101 H MCH 33 H MCHC 33 RDW 17.0 H Plt Count 276 Lymph % (Auto) 29.3 [place] % (Auto) 10.9 H Eos % (Auto) 6.9 H Baso % (Auto) 0.9 Lymph # 1.0 L [place] # 0.4 Eos # 0.2 Baso # 0.0 Seg Neutrophils % 52.0 Seg Neutrophils # 1.7 L Sodium Potassium Chloride Carbon Dioxide Anion Gap BUN Creatinine Estimated GFR BUN/Creatinine Ratio Glucose Calcium Total Bilirubin AST ALT Alkaline Phosphatase Total Protein Albumin Albumin/Globulin Ratio Urine Color Yellow Urine Turbidity Clear Urine pH 6.0 Ur Specific [place] 1.013 Urine Protein <15 mg/dl Urine Glucose (UA) Neg Urine Ketones Neg Urine Blood Neg Urine Nitrite Neg Urine Bilirubin Neg Urine Urobilinogen < 2.0 Ur Leukocyte Esterase Mod Urine WBC (Auto) 1.0 Urine RBC (Auto) 2.0 U Epithel Cells (Auto) 1.0 04/02/19 05:07 WBC RBC Hgb Hct MCV MCH MCHC RDW Plt Count Lymph % (Auto) [place] % (Auto) Eos % (Auto) Baso % (Auto) Lymph # [place] # Eos # Baso # Seg Neutrophils % Seg Neutrophils # Sodium 143 Potassium 3.6 Chloride 110.5 H Carbon Dioxide 19 L Anion Gap 17 BUN 7 Creatinine 0.5 L Estimated GFR > 60 BUN/Creatinine Ratio 14 Glucose 85 Calcium 9.0 Total Bilirubin < 0.20 AST 34 ALT 15 Alkaline Phosphatase 133 H Total Protein 6.4 D Albumin 3.7 L Albumin/Globulin Ratio 1.4 Urine Color Urine Turbidity Urine pH Ur Specific [place] Urine Protein Urine Glucose (UA) Urine Ketones Urine Blood Urine Nitrite Urine Bilirubin Urine Urobilinogen Ur Leukocyte Esterase Urine WBC (Auto) Urine RBC (Auto) U Epithel Cells (Auto)
[2019-04-02] MEDS: REMERON PO SCH (21:33)
[2019-04-02] MEDS: AMBIEN PO PRN (21:34)
[2019-04-02] MEDS: NORVASC PO SCH (21:34)
[2019-04-02] MEDS ORDERED: PROTONIX IV SCH (22:00)
[2019-04-02] MEDS ORDERED: REMERON PO SCH (22:00)
[2019-04-03] MEDS: ALUM-MAG HYDROX-SIMETH 200-200-20MG/5ML PO PRN ×3 (00:23→14:33)
[2019-04-03] MEDS: XANAX PO PRN ×3 (00:23→18:25)
[2019-04-03] MEDS: ROXICODONE PO PRN ×5 (02:22→18:25)
[2019-04-03] MEDS: LIDOCAINE VISCOUS 2% PO PRN ×2 (04:16→14:35)
[2019-04-03] MEDS: ZOFRAN IV PRN ×2 (06:32→18:25)
[2019-04-03 07:50] LABS: Hematocrit 36.8 % (30.3-42.9); Hemoglobin 12.3 gm/dl (10.1-14.3); Mean Corpuscular HGB Conc 33 % (30-34); Mean Corpuscular Volume 100 fl (79-97); Platelet Count 300 K/mm3 (140-440); Red Blood Count 3.67 M/mm3 (3.65-5.03); Red Cell Distribution Width 17.1 % (13.2-15.2)
[2019-04-03 08:11] LABS: Alanine Aminotransferase 16 units/L (7-56); Albumin 4.1 g/dL (3.9-5); BUN/Creatinine Ratio 5; Blood Urea Nitrogen 3 mg/dL (7-17); Calcium 9.1 mg/dL (8.4-10.2); Hemolysis Index 5
[2019-04-03] MEDS: NORVASC PO SCH (09:24)
[2019-04-03] MEDS: ZESTRIL PO SCH (09:24)
[2019-04-03] MEDS: SODIUM CHLORIDE FLUSH SYRINGE 10 ML IV SCH ×2 (09:25→21:02)
[2019-04-03] MEDS: PROTONIX IV SCH ×2 (09:25→21:01)
[2019-04-03 09:37] LABS: Total Cells Counted 100
[2019-04-03 09:38] LABS: Anisocytosis Few; Platelet Estimate Consistent w Auto
--- NOTE | 2019-04-03 09:53 | Gastroenterology Progress Note ---
Assessment and Plan This is a 53 yo female on whom I have been consulted for evaluation of epigastric pain, melena, and nausea/vomiting/diarrhea. 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 # Melena - reports of black stools and bloody stool per patient. Heme positive. - prior EGD a few months ago at outside hospital with ulcers per patient. - last flex sig in 11/2017 with only internal hemorrhoids. - H/H remained stable at her previous baseline. Rec: - monitor H/H. Hgb has been stable. - will plan for EGD to evaluate for melena and epigastric pain once pericardial effusion is evaluated and patient assessed for cardiac risks for sedation. TTE pending. - Patient Problems (1) Abdominal pain Current Visit: Yes Status: Acute Qualifiers: Abdominal location: upper abdomen, unspecified Qualified Code(s): R10.10 - Upper abdominal pain, unspecified Plan to address problem: Chronic pain for many years since her bypass surgery in 2001. Evaluated at multiple hospitals and by multiple GI physicians. She also had multiple EGDs for her abdominal pain as well as a diagnostic lap with Dr. James in 2013 showing normal findings other than narrowing at the GE junction. EGDs did not show stenosis. Reports having EGD a few months ago and was told that she had multiple ulcers. - reports she has been on multiple antiacids including PPI and carafate. GI cocktails helps somewhat. Rec: - avoid narcotic as there's concern for long narcotic use and dependence. - continue with PPI - continue with GI cocktail with maalox and lidocaine viscous prn. - recommend following up with her bariatric surgeon, Dr. Day outpatient. Patient undergoing work up for possible revision. (2) Nausea vomiting and diarrhea Current Visit: Yes Status: Acute Plan to address problem: Chronic diarrhea with negative work up in the past. Normal celiac panel, normal pancreatic elastase. H/o C diff failed multiple medications including flagyl, Po vancomycin, dificid, and leading to 2 fecal transplants in 08/2018 at [facility]. reports prior treatment failure for diarrhea to Viberzi (increased LFTs), questran, Welchol, imodium, lomotil, and creon. - reports multiple liquid stools overnight. Rec: - check C diff toxin. per nursing, sample sent down and pending results. - recommend follow up with Dr. Day for gastric bypass revision. Subjective Date of service: 04/03/19 Principal diagnosis: intractable epigastric pain, intactible N/V, hypertensive urrgency, acidoci Interval history: No change in symptoms. She states the lidocaine GI cocktail has helped somewhat. She reports having loose stools 6 times with black blood streaks. Objective - Constitutional Vitals: Temp Pulse Resp BP Pulse Ox 98.1 F 85 1 L 159/106 99 04/03/19 05:13 04/03/19 05:13 04/03/19 05:13 04/03/19 09:24 04/03/19 05:13 - EENT Eyes: EOM intact ENT: hearing intact, clear oral mucosa - Neck Neck: supple, normal ROM - Respiratory Respiratory effort: normal Respiratory: bilateral: CTA - Cardiovascular Rhythm: regular - Extremities Extremities: pulses intact, No edema, normal color, Full ROM - Gastrointestinal General gastrointestinal: Present: soft, tender, non-distended - Integumentary Integumentary: Present: clear, warm, dry - Neurologic Neurological: alert and oriented x3 - Labs CBC & Chem 7: 04/03/19 07:35 04/03/19 07:35 Labs: Laboratory Results - last 24 hr 04/03/19 04/03/19 07:35 07:35 WBC 2.8 L RBC 3.67 Hgb 12.3 Hct 36.8 MCV 100 H MCH 33 H MCHC 33 RDW 17.1 H Plt Count 300 Add Manual Diff Complete Total Counted 100 Seg Neutrophils % Rubber Vulcanizing Machine Operator Seg Neuts % (Manual) 39.0 L Band Neutrophils % 0 Lymphocytes % (Manual) 48.0 H Reactive Lymphs % (Man) 0 Monocytes % (Manual) 3.0 Eosinophils % (Manual) 9.0 H Basophils % (Manual) 1.0 Metamyelocytes % 0 Myelocytes % 0 Promyelocytes % 0 Blast Cells % 0 Nucleated RBC % Not Reportable Seg Neutrophils # Man 1.1 L Band Neutrophils # 0.0 Lymphocytes # (Manual) 1.3 Abs React Lymphs (Man) 0.0 Monocytes # (Manual) 0.1 Eosinophils # (Manual) 0.3 Basophils # (Manual) 0.0 Metamyelocytes # 0.0 Myelocytes # 0.0 Promyelocytes # 0.0 Blast Cells # 0.0 WBC Morphology Not Reportable Hypersegmented Neuts Not Reportable Hyposegmented Neuts Not Reportable Hypogranular Neuts Not Reportable Smudge Cells Not Reportable Toxic Granulation Not Reportable Toxic Vacuolation Not Reportable Dohle Bodies Not Reportable Pelger-Huet Anomaly Not Reportable Letty Rods Not Reportable Platelet Estimate Consistent w auto Clumped Platelets Not Reportable Plt Clumps, EDTA Not Reportable Large Platelets Not Reportable Giant Platelets Not Reportable Platelet Satelliting Not Reportable Plt Morphology Comment Not Reportable RBC Morphology Not Reportable Dimorphic RBCs Not Reportable Polychromasia Not Reportable Hypochromasia Not Reportable Poikilocytosis Not Reportable Anisocytosis Few Microcytosis Not Reportable Macrocytosis Not Reportable Spherocytes Not Reportable Pappenheimer Bodies Not Reportable Sickle Cells Not Reportable Target Cells Not Reportable Tear Drop Cells Not Reportable Ovalocytes Not Reportable Helmet Cells Not Reportable Drake-Ponshewaing Bodies Not Reportable [place] Rings Not Reportable [place] Cells Not Reportable Bite Cells Not Reportable Crenated Cell Not Reportable Elliptocytes Not Reportable Acanthocytes (Spur) Not Reportable Rouleaux Not Reportable Hemoglobin C Crystals Not Reportable Schistocytes Not Reportable Malaria parasites Not Reportable Darrell Bodies Not Reportable Hem Pathologist Commnt No Sodium 146 H Potassium 3.5 L Chloride 108.0 H Carbon Dioxide 22 Anion Gap 20 BUN 3 L Creatinine 0.6 L Estimated GFR > 60 BUN/Creatinine Ratio 5 Glucose 98 Calcium 9.1 Total Bilirubin < 0.20 AST 32 ALT 16 Alkaline Phosphatase 144 H Total Protein 6.9 Albumin 4.1 Albumin/Globulin Ratio 1.5
[2019-04-03] MEDS: PHENERGAN PR PRN ×2 (10:31→20:57)
--- NOTE | 2019-04-03 11:00 | Progress Note ---
Assessment and Plan Currently stable cardiac status. Pt with no current cardiac complaints. Await echo. For EGD pending results of echo. The patient has been seen in conjunction with Dr. Griffith who agrees with the assessment and plan of care. - Patient Problems (1) Pericardial effusion Current Visit: Yes Status: Suspected (2) GI bleed Current Visit: Yes Status: Acute (3) Abdominal pain Current Visit: Yes Status: Acute Qualifiers: Abdominal location: upper abdomen, unspecified Qualified Code(s): R10.10 - Upper abdominal pain, unspecified (4) Nausea vomiting and diarrhea Current Visit: Yes Status: Acute (5) History of gastric ulcer Current Visit: Yes Status: Chronic (6) S/P gastric bypass Current Visit: Yes Status: Chronic Subjective Date of service: 04/03/19 Principal diagnosis: intractable epigastric pain, intactible N/V, hypertensive urrgency, acidoci Interval history: pt resting in bed, no current cardiac complaints. still with c/o abd pain, n/v. Objective Last Vital Signs Temp 98.1 F 04/03/19 05:13 Pulse 85 04/03/19 05:13 Resp 1 L 04/03/19 05:13 BP 159/106 04/03/19 09:24 Pulse Ox 99 04/03/19 05:13 - Physical Examination General: No Apparent Distress HEENT: Positive: PERRL, Normocephaly, Mucus Membranes Moist Neck: Positive: neck supple, trachea midline Cardiac: Positive: Reg Rate and Rhythm, S1/S2 Lungs: Positive: Decreased Breath Sounds Neuro: Positive: Grossly Intact Skin: Negative: Rash Musculoskeletal: No Pain Extremities: Absent: edema - Labs and Meds Cardiac Enzymes 04/03/19 Range/Units 07:35 AST 32 (5-40) units/L CBC 04/03/19 Range/Units 07:35 WBC 2.8 L (4.5-11.0) K/mm3 RBC 3.67 (3.65-5.03) M/mm3 Hgb 12.3 (10.1-14.3) gm/dl Hct 36.8 (30.3-42.9) % Plt Count 300 (140-440) K/mm3 Comprehensive Metabolic Panel 04/03/19 Range/Units 07:35 Sodium 146 H (137-145) mmol/L Potassium 3.5 L (3.6-5.0) mmol/L Chloride 108.0 H (98-107) mmol/L Carbon Dioxide 22 (22-30) mmol/L BUN 3 L (7-17) mg/dL Creatinine 0.6 L (0.7-1.2) mg/dL Glucose 98 (65-100) mg/dL Calcium 9.1 (8.4-10.2) mg/dL AST 32 (5-40) units/L ALT 16 (7-56) units/L Alkaline Phosphatase 144 H (35-129) units/L Total Protein 6.9 (6.3-8.2) g/dL Albumin 4.1 (3.9-5) g/dL - Imaging and Cardiology Echo: pending
--- NOTE | 2019-04-03 14:14 | Progress Note ---
Assessment and Plan / Epigastric pain with Intractable nausea and vomiting -Probably due to gastritis versus stoma ulcer -CT abdomen/pelvis suspicious for gastritis and smallermoderate pericardial effusion -On IV Protonix and when necessary narcotics - consulted parachutist/combatant diver qualified , plan for EGD possibly tomorrow /GI bleed with Melena -On IV Protonix -H/H stable, will monitor and transfuse patient as needed -GI consulted and following /S/p Gastric bypass in 2001 with H/o of Stoma ulcer on protonix, Following up with Dr Chuy Day for possible revision outpt /Hypertensive urgency -On when necessary IV antihypertensive, will monitor blood pressure /Acute on chronic diarrhea -Status post fecal Implants 2 with failure -negative for C. difficile toxin -d/c Contact isolation, supportive care, loperamide as needed Smallmoderate pericardial effusion per imaging -Further evaluation with Echocardiogram, no sign of temponade, cardiology following Acute metabolic acidosis -On IV fluid, will monitor bicarbonate level Mild hyponatremia - corrected -On IV fluid, will monitor sodium level DVT prophylaxis with SCD Disposition: For discharge when medically stable brief history: Patient is a 53-year-old -English female with history of celiac disease and multiple GI problems including C. difficile colitis, who presented to the ED on account of 5 days' history of epigastric pain and melena. Objective Constitutional: Well-nourished well-developed. In no distress Head: Normocephalic atraumatic Eyes: Pupils are equal round and reactive to light Nose: No enlarged turbinates, no septal deviation. Mouth: Moist mucous membranes. Neck: Supple no thyromegaly. No bruit. No JVD Heart: Regular rate and rhythm, S1-S2 normal. No rubs murmurs or gallop Lungs: Clear to auscultation bilaterally. no rales or rhonchi Abdomen: Soft, has epigastric tenderness. Bowel sound are present. Extremities: No edema, no cyanosis, no clubbing. Neuro: Alert oriented Oriented x3. No focal sensory or motor deficit. Skin: No rashes or hyperpigmented spots Musculoskeletal system: No joint pain or swelling Hematological: No petechia or subcutanous hemorrhages. Immunological: No multiple septic spots on the skin Lymphatic: No generalized lymphadenopathy Psychiatry: Euthymic. Calm. Subjective Date of service: 04/03/19 Principal diagnosis: intractable epigastric pain, intactible N/V, hypertensive urrgency, acidoci Interval history: Patient seen and examined still having abdominal pain with nausea. Denies any fever. s/p TTE today, plan for EGD tomorrow Objective - Constitutional Vitals: Vital Signs - 12hr 04/03/19 04/03/19 04/03/19 05:00 05:13 09:24 Temperature 98.1 F Pulse Rate 85 Respiratory 18 1 L Rate Blood Pressure 138/83 159/106 O2 Sat by Pulse 99 Oximetry 04/03/19 04/03/19 09:26 12:34 Temperature 97.4 F L Pulse Rate 95 H 90 Respiratory 18 20 Rate Blood Pressure 159/106 162/110 O2 Sat by Pulse 99 100 Oximetry - Labs CBC & Chem 7: 04/03/19 07:35 04/03/19 07:35 Labs: Abnormal lab results 04/03/19 04/03/19 Range/Units 07:35 07:35 WBC 2.8 L (4.5-11.0) K/mm3 MCV 100 H (79-97) fl MCH 33 H (28-32) pg RDW 17.1 H (13.2-15.2) % Seg Neuts % (Manual) 39.0 L (40.0-70.0) % Lymphocytes % (Manual) 48.0 H (13.4-35.0) % Eosinophils % (Manual) 9.0 H (0.0-4.3) % Seg Neutrophils # Man 1.1 L (1.8-7.7) K/mm3 Sodium 146 H (137-145) mmol/L Potassium 3.5 L (3.6-5.0) mmol/L Chloride 108.0 H (98-107) mmol/L BUN 3 L (7-17) mg/dL Creatinine 0.6 L (0.7-1.2) mg/dL Alkaline Phosphatase 144 H (35-129) units/L
[2019-04-03] MEDS: REMERON PO SCH (21:01)
[2019-04-03] MEDS: AMBIEN PO PRN (22:10)
[2019-04-03] MEDS ORDERED: MORPHINE IV ONE (22:10)
[2019-04-04] MEDS: NORMODYNE IV PRN ×2 (00:49→05:06)
[2019-04-04] MEDS: ROXICODONE PO PRN ×5 (00:58→18:03)
[2019-04-04] MEDS: ZOFRAN IV PRN (00:59)
[2019-04-04 06:10] LABS: Hematocrit 38.2 % (30.3-42.9); Hemoglobin 12.6 gm/dl (10.1-14.3); Mean Corpuscular HGB Conc 33 % (30-34); Mean Corpuscular Volume 102 fl (79-97); Platelet Count 324 K/mm3 (140-440); Red Blood Count 3.76 M/mm3 (3.65-5.03); Red Cell Distribution Width 17.1 % (13.2-15.2)
[2019-04-04 06:37] LABS: Alanine Aminotransferase 18 units/L (7-56); Albumin 4.2 g/dL (3.9-5); BUN/Creatinine Ratio 7; Blood Urea Nitrogen 4 mg/dL (7-17); Calcium 9.4 mg/dL (8.4-10.2); Hemolysis Index 5
[2019-04-04] MEDS ORDERED: K-DUR PO ONE (08:00)
[2019-04-04] MEDS ORDERED: LOPRESSOR IV SCH (09:00)
[2019-04-04] MEDS: PROTONIX IV SCH ×2 (09:30→22:22)
[2019-04-04] MEDS: NORVASC PO SCH (09:32)
[2019-04-04] MEDS: ZESTRIL PO SCH (09:32)
[2019-04-04] MEDS: SODIUM CHLORIDE FLUSH SYRINGE 10 ML IV SCH ×2 (09:32→21:32)
[2019-04-04 09:44] LABS: Anisocytosis Few; Platelet Estimate Consistent w Auto; Total Cells Counted 100
[2019-04-04] MEDS ORDERED: LOPRESSOR PO SCH ×2 (10:00→14:00)
--- NOTE | 2019-04-04 10:31 | Progress Note ---
Assessment and Plan Echo reviewed - EF 55-60%, mild MR and TR, small pericardial effusion, no evidence of tamponade. Plan to f/u echo as OP. Currently stable cardiac status. May proceed with EGD from cardiology standpoint. Nothing further to add from cardiac perspective at this time. Will sign off. Recommend follow up in our office with Dr. Griffith within 1-2 weeks of hospital discharge ([phone]). The patient has been seen in conjunction with Dr. Griffith who agrees with the assessment and plan of care. - Patient Problems (1) Pericardial effusion Current Visit: Yes Status: Acute Plan to address problem: small, no tamponade (2) GI bleed Current Visit: Yes Status: Acute (3) Abdominal pain Current Visit: Yes Status: Acute Qualifiers: Abdominal location: upper abdomen, unspecified Qualified Code(s): R10.10 - Upper abdominal pain, unspecified (4) Nausea vomiting and diarrhea Current Visit: Yes Status: Acute (5) History of gastric ulcer Current Visit: Yes Status: Chronic (6) S/P gastric bypass Current Visit: Yes Status: Chronic Subjective Date of service: 04/04/19 Principal diagnosis: intractable epigastric pain, intactible N/V, hypertensive urrgency, acidoci Interval history: pt resting in bed, no current cardiac complaints. still with c/o abd pain, n/v. Objective Last Vital Signs Temp 97.3 F L 04/04/19 06:36 Pulse 84 04/04/19 06:36 Resp 18 04/04/19 06:36 BP 158/94 04/04/19 10:09 Pulse Ox 100 04/04/19 06:36 - Physical Examination General: No Apparent Distress HEENT: Positive: PERRL, Normocephaly, Mucus Membranes Moist Neck: Positive: neck supple, trachea midline Cardiac: Positive: Reg Rate and Rhythm, S1/S2 Lungs: Positive: Decreased Breath Sounds Neuro: Positive: Grossly Intact Skin: Negative: Rash Musculoskeletal: No Pain Extremities: Absent: edema - Labs and Meds Cardiac Enzymes 04/04/19 Range/Units 05:43 AST 38 (5-40) units/L CBC 04/04/19 Range/Units 05:43 WBC 3.1 L (4.5-11.0) K/mm3 RBC 3.76 (3.65-5.03) M/mm3 Hgb 12.6 (10.1-14.3) gm/dl Hct 38.2 (30.3-42.9) % Plt Count 324 (140-440) K/mm3 Comprehensive Metabolic Panel 04/04/19 Range/Units 05:43 Sodium 142 (137-145) mmol/L Potassium 3.6 (3.6-5.0) mmol/L Chloride 105.7 (98-107) mmol/L Carbon Dioxide 23 (22-30) mmol/L BUN 4 L (7-17) mg/dL Creatinine 0.6 L (0.7-1.2) mg/dL Glucose 160 H (65-100) mg/dL Calcium 9.4 (8.4-10.2) mg/dL AST 38 (5-40) units/L ALT 18 (7-56) units/L Alkaline Phosphatase 158 H (35-129) units/L Total Protein 6.9 (6.3-8.2) g/dL Albumin 4.2 (3.9-5) g/dL - Imaging and Cardiology Echo: pending
[2019-04-04] MEDS ORDERED: ZESTRIL PO ONE (11:00)
[2019-04-04] MEDS: LIDOCAINE VISCOUS 2% PO PRN ×2 (11:01→18:08)
[2019-04-04] MEDS: ALUM-MAG HYDROX-SIMETH 200-200-20MG/5ML PO PRN ×3 (11:05→18:08)
[2019-04-04] MEDS: D5/0.45NS 1,000 ML IV SCH ×2 (11:08→21:29)
[2019-04-04] MEDS: MORPHINE IV PRN ×3 (11:08→22:20)
[2019-04-04] MEDS: LOPRESSOR PO SCH ×2 (13:22→21:24)
[2019-04-04] MEDS: XANAX PO PRN ×2 (13:30→22:19)
--- NOTE | 2019-04-04 13:51 | Progress Note ---
Assessment and Plan Assessment and plan: Patient is a 53 yo woman with a history of Gastric bypass, celiac disease, C. diffe colitis s/p fecal transplant x 2, hypertension, diverticulosis, IBS, SBO, GERD, anastomatic ulcers, chronic pain syndrome with narcotic use and chronic diarrhea who presented to [facility] ED with n/v/epigastric pains/diarrhea with intermittent melena and hematochezia. / Epigastric pain with Intractable nausea and vomiting -Probably due to gastritis versus stoma ulcer -CT abdomen/pelvis suspicious for gastritis and smallermoderate pericardial effusion -On IV Protonix and when necessary narcotics - consulted visual education teacher , plan for EGD today /GI bleed with Melena -On IV Protonix -H/H stable, will monitor and transfuse patient as needed -GI consulted and following /S/p Gastric bypass in 2001 with H/o of Stoma ulcer on protonix, Following up with Dr Chuy Day for possible revision outpt /Hypertensive urgency -On when necessary IV antihypertensive, will monitor blood pressure /Acute on chronic diarrhea -Status post fecal Implants 2 -negative for C. difficile toxin -d/c Contact isolation, supportive care, loperamide as needed Smallmoderate pericardial effusion per imaging -Further evaluation with Echocardiogram, no sign of tamponade, Cardiology following Acute metabolic acidosis -On IV fluid, will monitor bicarbonate level Mild hyponatremia - corrected -On IV fluid, will monitor sodium level DVT prophylaxis with SCD Disposition: continue inpatient discharge, possible d/c tomorrow, For discharge when medically stable History Interval history: Patient was seen and examined. Follow-up on current diagnosis of Intractable N/V. No overnight events reported to me. Patient denies any chest pain, shortness breath, or severe headaches. Imaging, nursing note, chart, labs and old chart reviewed. Discussed with patient. Hospitalist Physical - Physical exam Narrative exam: Gen: frail appearing NAD, Awake, Alert, Orientated HEENT: NCAT, EOMI, PERRL, OP Clear Neck: supple, no adenopathy, no thyromegaly, no JVD CVS/Heart: RRR, normal S1S2, pulses present bilaterally Chest/Lungs: CTA B, Symmetrical chest exddfpansion, good air entry bilaterally GI/Abdomen: soft, epigastric abdominal pains, good bowel sounds, no guarding or rebound /Bladder: no suprapubic tenderness, no CVA or paraspinal tenderness Extermity/Skin: no c/c/e, no obvious rash MSK: FROM x 4 Neuro: CN 2-12 grossly intact, no new focal deficits Psych: calm - Constitutional Vitals: Temp Pulse Resp BP Pulse Ox 98.2 F 90 20 125/84 99 04/04/19 13:07 04/04/19 13:22 04/04/19 13:07 04/04/19 13:22 04/04/19 13:07 General appearance: Present: no acute distress Results - Labs CBC & Chem 7: 04/04/19 05:43 04/04/19 05:43 Labs: Laboratory Last Values WBC 3.1 K/mm3 (4.5-11.0) L 04/04/19 05:43 RBC 3.76 M/mm3 (3.65-5.03) 04/04/19 05:43 Hgb 12.6 gm/dl (10.1-14.3) 04/04/19 05:43 Hct 38.2 % (30.3-42.9) 04/04/19 05:43 MCV 102 fl (79-97) H 04/04/19 05:43 MCH 34 pg (28-32) H 04/04/19 05:43 MCHC 33 % (30-34) 04/04/19 05:43 RDW 17.1 % (13.2-15.2) H 04/04/19 05:43 Plt Count 324 K/mm3 (140-440) 04/04/19 05:43 Lymph % (Auto) Project Coach 04/04/19 05:43 [place] % (Auto) 10.9 % (0.0-7.3) H 04/02/19 05:07 Eos % (Auto) 6.9 % (0.0-4.3) H 04/02/19 05:07 Baso % (Auto) 0.9 % (0.0-1.8) 04/02/19 05:07 Lymph # 1.0 K/mm3 (1.2-5.4) L 04/02/19 05:07 [place] # 0.4 K/mm3 (0.0-0.8) 04/02/19 05:07 Eos # 0.2 K/mm3 (0.0-0.4) 04/02/19 05:07 Baso # 0.0 K/mm3 (0.0-0.1) 04/02/19 05:07 Add Manual Diff Complete 04/04/19 05:43 Total Counted 100 04/04/19 05:43 Seg Neutrophils % Project Coach 04/04/19 05:43 Seg Neuts % (Manual) 35.0 % (40.0-70.0) L 04/04/19 05:43 0 % 04/04/19 05:43 57.0 % (13.4-35.0) H 04/04/19 05:43 Reactive Lymphs % (Man) 0 % 04/04/19 05:43 4.0 % (0.0-7.3) 04/04/19 05:43 3.0 % (0.0-4.3) 04/04/19 05:43 1.0 % (0.0-1.8) 04/04/19 05:43 0 % 04/04/19 05:43 0 % 04/04/19 05:43 0 % 04/04/19 05:43 0 % 04/04/19 05:43 Nucleated RBC % Not Reportable 04/04/19 05:43 Seg Neutrophils # 1.7 K/mm3 (1.8-7.7) L 04/02/19 05:07 Seg Neutrophils # Man 1.1 K/mm3 (1.8-7.7) L 04/04/19 05:43 Band Neutrophils # 0.0 K/mm3 04/04/19 05:43 1.8 K/mm3 (1.2-5.4) 04/04/19 05:43 Abs React Lymphs (Man) 0.0 K/mm3 04/04/19 05:43 0.1 K/mm3 (0.0-0.8) 04/04/19 05:43 0.1 K/mm3 (0.0-0.4) 04/04/19 05:43 0.0 K/mm3 (0.0-0.1) 04/04/19 05:43 0.0 K/mm3 04/04/19 05:43 0.0 K/mm3 04/04/19 05:43 0.0 K/mm3 04/04/19 05:43 Blast Cells # 0.0 K/mm3 04/04/19 05:43 WBC Morphology Not Reportable 04/04/19 05:43 Hypersegmented Neuts Not Reportable 04/04/19 05:43 Hyposegmented Neuts Not Reportable 04/04/19 05:43 Hypogranular Neuts Not Reportable 04/04/19 05:43 Not Reportable 04/04/19 05:43 Not Reportable 04/04/19 05:43 Not Reportable 04/04/19 05:43 Not Reportable 04/04/19 05:43 Not Reportable 04/04/19 05:43 Not Reportable 04/04/19 05:43 Consistent w auto 04/04/19 05:43 Not Reportable 04/04/19 05:43 Plt Clumps, EDTA Not Reportable 04/04/19 05:43 Not Reportable 04/04/19 05:43 Not Reportable 04/04/19 05:43 Not Reportable 04/04/19 05:43 Plt Morphology Comment Not Reportable 04/04/19 05:43 RBC Morphology Not Reportable 04/04/19 05:43 Dimorphic RBCs Not Reportable 04/04/19 05:43 Not Reportable 04/04/19 05:43 Not Reportable 04/04/19 05:43 Not Reportable 04/04/19 05:43 Few 04/04/19 05:43 Not Reportable 04/04/19 05:43 Not Reportable 04/04/19 05:43 Not Reportable 04/04/19 05:43 Not Reportable 04/04/19 05:43 Not Reportable 04/04/19 05:43 Not Reportable 04/04/19 05:43 Not Reportable 04/04/19 05:43 Not Reportable 04/04/19 05:43 Not Reportable 04/04/19 05:43 Not Reportable 04/04/19 05:43 Not Reportable 04/04/19 05:43 Not Reportable 04/04/19 05:43 Not Reportable 04/04/19 05:43 Not Reportable 04/04/19 05:43 Not Reportable 04/04/19 05:43 Acanthocytes (Spur) Not Reportable 04/04/19 05:43 Rouleaux Not Reportable 04/04/19 05:43 Not Reportable 04/04/19 05:43 Not Reportable 04/04/19 05:43 Not Reportable 04/04/19 05:43 Not Reportable 04/04/19 05:43 Hem Pathologist Commnt No 04/04/19 05:43 Sodium 142 mmol/L (137-145) 04/04/19 05:43 Potassium 3.6 mmol/L (3.6-5.0) 04/04/19 05:43 Chloride 105.7 mmol/L (98-107) 04/04/19 05:43 Carbon Dioxide 23 mmol/L (22-30) 04/04/19 05:43 17 mmol/L 04/04/19 05:43 BUN 4 mg/dL (7-17) L 04/04/19 05:43 0.6 mg/dL (0.7-1.2) L 04/04/19 05:43 Estimated GFR > 60 ml/min 04/04/19 05:43 7 % 04/04/19 05:43 Glucose 160 mg/dL (65-100) H 04/04/19 05:43 Calcium 9.4 mg/dL (8.4-10.2) 04/04/19 05:43 < 0.20 mg/dL (0.1-1.2) 04/04/19 05:43 < 0.2 mg/dL (0-0.2) 03/31/19 15:30 0.0 mg/dL 03/31/19 15:30 AST 38 units/L (5-40) 04/04/19 05:43 ALT 18 units/L (7-56) 04/04/19 05:43 158 units/L (35-129) H 04/04/19 05:43 6.9 g/dL (6.3-8.2) 04/04/19 05:43 4.2 g/dL (3.9-5) 04/04/19 05:43 1.6 % 04/04/19 05:43 23 units/L (13-60) 03/31/19 15:30 Vitamin B12 812.2 pg/mL (211-911) 04/01/19 14:41 12.96 ng/mL (7.3-26.0) 04/01/19 14:41 Yellow (Yellow) 03/31/19 09:06 Clear (Clear) 03/31/19 09:06 6.0 (5.0-7.0) 03/31/19 09:06 Ur Specific [place] 1.013 (1.003-1.030) 03/31/19 09:06 <15 mg/dl mg/dL (Negative) 03/31/19 09:06 Neg mg/dL (Negative) 03/31/19 09:06 Neg mg/dL (Negative) 03/31/19 09:06 Neg (Negative) 03/31/19 09:06 Neg (Negative) 03/31/19 09:06 Neg (Negative) 03/31/19 09:06 < 2.0 mg/dL (<2.0) 03/31/19 09:06 Ur Leukocyte Esterase Mod (Negative) 03/31/19 09:06 1.0 /HPF (0.0-6.0) 03/31/19 09:06 2.0 /HPF (0.0-6.0) 03/31/19 09:06 U Epithel Cells (Auto) 1.0 /HPF (0-13.0) 03/31/19 09:06 C. difficile Tox (PCR) Negative (Negative) 04/02/19 11:07 Active Medications - Current Medications Current Medications: Generic Name Dose Route Start Last Admin Trade Name Freq PRN Reason Stop Dose Admin Acetaminophen 650 mg 03/31/19 22:46 Tylenol PO Q4H PRN Pain MILD(1-3)/Fever >100.5/WRAY Al Hydrox/Mg Hydrox/Simethicone 15 ml 04/01/19 09:44 04/04/19 11:05 Alum-Mag Hydrox-Simeth [id number]/5ml PO 15 ml Q4H PRN Administration Indigestion Alprazolam 0.5 mg 04/01/19 15:25 04/03/19 18:25 Xanax PO 0.5 mg Q8H PRN Administration Anxiety Amlodipine Besylate 10 mg 04/04/19 01:32 04/04/19 09:32 Norvasc PO 10 mg DAILY THEO Administration Dextrose/Sodium Chloride 1,000 mls @ 100 mls/hr 04/04/19 10:00 04/04/19 11:08 D5/0.45ns IV 100 mls/hr DIRECT THEO Administration Lidocaine HCl 15 ml 04/03/19 09:48 04/04/19 11:01 Lidocaine Viscous 2% PO 15 ml Q6HR PRN Administration Mouth Pain Lisinopril 40 mg 04/05/19 10:00 Zestril PO QDAY THEO Metoprolol Tartrate 50 mg 04/04/19 14:00 04/04/19 13:22 Lopressor PO 50 mg TID THEO Administration Mirtazapine 15 mg 04/01/19 22:00 04/03/19 21:01 Remeron PO 15 mg QHS THEO Administration Morphine Sulfate 2 mg 04/04/19 09:33 04/04/19 11:08 Morphine IV 2 mg Q4H PRN Administration Pain , Severe (7-10) Ondansetron HCl 4 mg 03/31/19 22:55 04/04/19 00:59 Zofran IV 4 mg Q4H PRN Administration Nausea And Vomiting Oxycodone HCl 10 mg 04/02/19 02:54 04/04/19 13:22 Roxicodone PO 10 mg Q4H PRN Administration Pain, Moderate (4-6) Pantoprazole Sodium 40 mg 04/01/19 10:00 04/04/19 09:30 Protonix IV 40 mg BID THEO Administration Sodium Chloride 10 ml 04/01/19 10:00 04/04/19 09:32 Sodium Chloride Flush Syringe 10 Ml IV 10 ml BID THEO Administration Sodium Chloride 10 ml 03/31/19 22:46 04/02/19 03:15 Sodium Chloride Flush Syringe 10 Ml IV 10 ml PRN PRN Administration LINE FLUSH Zolpidem Tartrate 5 mg 03/31/19 22:46 04/03/19 22:10 Ambien PO 5 mg QHS PRN Administration Insomnia Nutrition/Malnutrition Assess - Dietary Evaluation Nutrition/Malnutrition Findings: Nutrition Notes Start: 04/01/19 15:39 Freq: Status: Active Protocol: Document 04/01/19 15:39 RM (Rec: 04/01/19 15:46 RM [id number]) Nutrition Notes Need for Assessment generated from: MST Initial or Follow up Assessment Other Pertinent Diagnosis Celiac diease, Hx C. diff N/V, GERD, Abdominal pain Current Diet Clear liquid Labs/Tests Reviewed Pertinent Medications Reviewed Height 5 ft 6 in Weight 59.5 kg Usual Body Weight 61.36 kg [place] Body Weight (kg) 59.09 BMI 21.2 Weight change and time frame 3.03% wt loss X 3 months Subjective/Other Information Screened for malnutrition. Pt stated that LANDFILL ATTENDANT her appetite was poor d/t N/V/D and that she did not eat X 5 days. Stated she had not received a meal here yet. Stated UBW was 130-140 lbs 3 months ago. Pt already familiar with celiac diet education. No temporal or orbital wasting . Burn Absent Trauma Absent #1 Nutrition Diagnosis Inadequate oral intake Etiology N/V/D As Evidenced by Signs and Symptoms pt statement that LANDFILL ATTENDANT she did not eat X 5 days Is patient on ventilator? No Is Patient Ambulatory and/or Out of Bed Yes REE-([facility]-ambulatory/OOB) [ 1594.775 [id number]] Calculation Used for Recommendations [facility] Additional Notes Protein Needs: 48-60g (0.8-1g/ kg) Fluid Needs: 1 ml/kcal Nutrition Intervention Change Diet Order: Continue current Add Supplement/Snack (indicate name/kcal Ensure Clear 1 daily /protein ) Provides kCal: 240 Provides Protein (gm) 8 Goal #1 Meet at least 75% of calorie and protein needs via PO and ONS intakes Anticipated Discharge Needs: Unable to determine at this time Follow-Up By: 04/04/19 Additional Comments Follow for PO and ONS intakes
--- NOTE | 2019-04-04 14:00 | Gastroenterology Progress Note ---
Assessment and Plan This is a 53 yo female on whom I have been consulted for evaluation of epigastric pain, melena, and nausea/vomiting/diarrhea. 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 # Melena -H/H stable (12.6/38.2) -no active signs of bleeding -prior EGD a few months ago at outside hospital with ulcers per patient. -last flex sig in 11/2017 with only internal hemorrhoids -etiology-most likely 2/2 to known anastomotic ulcers (likely ischemic in nature) -EGD tomorrow for further evaluation (cleared by cardiology) -NPO after MN -continue PPI and supportive care #abdominal pain (epigastric) -Chronic pain for many years since her bypass surgery in 2001. Evaluated at multiple hospitals and by multiple GI physicians. She also had multiple EGDs for her abdominal pain as well as a diagnostic lap with Dr. James in 2013 showing normal findings other than narrowing at the GE junction. EGDs did not show stenosis. Reports having EGD a few months ago and was told that she had multiple ulcers. - reports she has been on multiple antiacids including PPI and carafate. GI cocktails helps somewhat -etiology-likely 2/2 known ulcers +/- possible nerve damage from bypass - avoid narcotic as there's concern for long narcotic use and dependence. - continue with PPI - continue with GI cocktail with maalox and lidocaine viscous prn. - recommend following up with her bariatric surgeon, Dr. Day outpatient. Patient undergoing work up for possible revision. #N/V, diarrhea -Chronic diarrhea with negative work up in the past. Normal celiac panel, normal pancreatic elastase. H/o C diff failed multiple medications including flagyl, Po vancomycin, dificid, and leading to 2 fecal transplants in 08/2018 at [facility]. reports prior treatment failure for diarrhea to Viberzi (increased LFTs), questran, Welchol, imodium, lomotil, and creon. -stool currently negative for C-diff - recommend follow up with Dr. Day for gastric bypass revision. Subjective Date of service: 04/04/19 Principal diagnosis: Hx of PUD, heme +stool Interval history: No acute distress. Reports continued epigastric pain. No N/V or active signs of bleeding. Tolerating eating a biscuit this am for breakfast. Objective - Constitutional Vitals: Temp Pulse Resp BP Pulse Ox 98.2 F 90 20 125/84 99 04/04/19 13:07 04/04/19 13:22 04/04/19 13:07 04/04/19 13:22 04/04/19 13:07 General appearance: no acute distress - Respiratory Respiratory: bilateral: CTA - Cardiovascular Rhythm: regular - Gastrointestinal General gastrointestinal: Present: soft, tender, non-distended, normal bowel sounds - Neurologic Neurological: alert and oriented x3 - Labs CBC & Chem 7: 04/04/19 05:43 04/04/19 05:43 Labs: Laboratory Results - last 24 hr 04/02/19 04/04/19 04/04/19 11:07 05:43 05:43 WBC 3.1 L RBC 3.76 Hgb 12.6 Hct 38.2 MCV 102 H MCH 34 H MCHC 33 RDW 17.1 H Plt Count 324 Lymph % (Auto) Vest Finisher Add Manual Diff Complete Total Counted 100 Seg Neutrophils % Vest Finisher Seg Neuts % (Manual) 35.0 L Band Neutrophils % 0 Lymphocytes % (Manual) 57.0 H Reactive Lymphs % (Man) 0 Monocytes % (Manual) 4.0 Eosinophils % (Manual) 3.0 Basophils % (Manual) 1.0 Metamyelocytes % 0 Myelocytes % 0 Promyelocytes % 0 Blast Cells % 0 Nucleated RBC % Not Reportable Seg Neutrophils # Man 1.1 L Band Neutrophils # 0.0 Lymphocytes # (Manual) 1.8 Abs React Lymphs (Man) 0.0 Monocytes # (Manual) 0.1 Eosinophils # (Manual) 0.1 Basophils # (Manual) 0.0 Metamyelocytes # 0.0 Myelocytes # 0.0 Promyelocytes # 0.0 Blast Cells # 0.0 WBC Morphology Not Reportable Hypersegmented Neuts Not Reportable Hyposegmented Neuts Not Reportable Hypogranular Neuts Not Reportable Smudge Cells Not Reportable Toxic Granulation Not Reportable Toxic Vacuolation Not Reportable Dohle Bodies Not Reportable Pelger-Huet Anomaly Not Reportable Letty Rods Not Reportable Platelet Estimate Consistent w auto Clumped Platelets Not Reportable Plt Clumps, EDTA Not Reportable Large Platelets Not Reportable Giant Platelets Not Reportable Platelet Satelliting Not Reportable Plt Morphology Comment Not Reportable RBC Morphology Not Reportable Dimorphic RBCs Not Reportable Polychromasia Not Reportable Hypochromasia Not Reportable Poikilocytosis Not Reportable Anisocytosis Few Microcytosis Not Reportable Macrocytosis Not Reportable Spherocytes Not Reportable Pappenheimer Bodies Not Reportable Sickle Cells Not Reportable Target Cells Not Reportable Tear Drop Cells Not Reportable Ovalocytes Not Reportable Helmet Cells Not Reportable [place] Bodies Not Reportable [place] Rings Not Reportable [place] Cells Not Reportable Bite Cells Not Reportable Crenated Cell Not Reportable Elliptocytes Not Reportable Acanthocytes (Spur) Not Reportable Rouleaux Not Reportable Hemoglobin C Crystals Not Reportable Schistocytes Not Reportable Malaria parasites Not Reportable [place]rell Bodies Not Reportable Hem Pathologist Commnt No Sodium 142 Potassium 3.6 Chloride 105.7 Carbon Dioxide 23 Anion Gap 17 BUN 4 L Creatinine 0.6 L Estimated GFR > 60 BUN/Creatinine Ratio 7 Glucose 160 H Calcium 9.4 Total Bilirubin < 0.20 AST 38 ALT 18 Alkaline Phosphatase 158 H Total Protein 6.9 Albumin 4.2 Albumin/Globulin Ratio 1.6 C. difficile Tox (PCR) Negative
[2019-04-04] MEDS: REMERON PO SCH (21:30)
[2019-04-05] MEDS: ROXICODONE PO PRN ×2 (01:59→10:25)
[2019-04-05] MEDS: ZOFRAN IV PRN ×2 (03:02→10:11)
[2019-04-05] MEDS: MORPHINE IV PRN (05:46)
[2019-04-05] MEDS ORDERED: ZESTRIL PO SCH (10:00)
[2019-04-05] MEDS: PROTONIX IV SCH (10:11)
[2019-04-05] MEDS: D5/0.45NS 1,000 ML IV SCH (10:12)
[2019-04-05] MEDS: NORVASC PO SCH (10:28)
[2019-04-05] MEDS: LOPRESSOR PO SCH ×2 (10:30→15:29)
[2019-04-05] MEDS: SODIUM CHLORIDE FLUSH SYRINGE 10 ML IV SCH (10:33)
--- NOTE | 2019-04-05 11:54 | Progress Note ---
Assessment and Plan Assessment and plan: Patient is a 53 yo woman with a history of Gastric bypass, celiac disease, C. diffe colitis s/p fecal transplant x 2, hypertension, diverticulosis, IBS, SBO, GERD, anastomatic ulcers, chronic pain syndrome with narcotic use and chronic diarrhea who presented to [facility] ED with n/v/epigastric pains/diarrhea with intermittent melena and hematochezia. Epigastric pain with Intractable nausea and vomiting -Probably due to gastritis versus stoma ulcer -CT abdomen/pelvis suspicious for gastritis and smallermoderate pericardial effusion -On IV Protonix and when necessary narcotics - consulted home mortgage disclosure act specialist , plan for EGD GI bleed with Melena -On IV Protonix -H/H stable, will monitor and transfuse patient as needed -GI consulted and following S/p Gastric bypass in 2001 with H/o of Stoma ulcer on protonix, Following up with Dr Chuy Day for possible revision outpt /Hypertensive urgency -On when necessary IV antihypertensive, will monitor blood pressure /Acute on chronic diarrhea -Status post fecal Implants 2 -negative for C. difficile toxin -d/c Contact isolation, supportive care, loperamide as needed Small pericardial effusion per imaging -Further evaluation with Echocardiogram reviewed, no sign of tamponade, Cardiology following Acute metabolic acidosis -On IV fluid, will monitor bicarbonate level Mild hyponatremia - corrected -On IV fluid, will monitor sodium level DVT prophylaxis with SCD Disposition: continue inpatient discharge, possible d/c today, For discharge w hen medically stable Patient did not get EGD because she ate then refused. EGD to be done today History Interval history: Patient was seen and examined. Follow-up on current diagnosis of Intractable N/V. No overnight events reported to me. Patient denies any chest pain, shortness breath, or severe headaches. Imaging, nursing note, chart, labs and old chart reviewed. Discussed with patient. Hospitalist Physical - Physical exam Narrative exam: Gen: frail appearing NAD, Awake, Alert, Orientated HEENT: NCAT, EOMI, PERRL, OP Clear Neck: supple, no adenopathy, no thyromegaly, no JVD CVS/Heart: RRR, normal S1S2, pulses present bilaterally Chest/Lungs: CTA B, Symmetrical chest exddfpansion, good air entry bilaterally GI/Abdomen: soft, epigastric abdominal pains, good bowel sounds, no guarding or rebound /Bladder: no suprapubic tenderness, no CVA or paraspinal tenderness Extermity/Skin: no c/c/e, no obvious rash MSK: FROM x 4 Neuro: CN 2-12 grossly intact, no new focal deficits Psych: calm - Constitutional Vitals: Temp Pulse Resp BP Pulse Ox 97.6 F 67 16 126/81 100 04/05/19 05:24 04/05/19 10:30 04/05/19 05:24 04/05/19 10:30 04/05/19 05:24 General appearance: Present: no acute distress Results - Labs CBC & Chem 7: 04/04/19 05:43 04/04/19 05:43 Labs: Laboratory Last Values WBC 3.1 K/mm3 (4.5-11.0) L 04/04/19 05:43 RBC 3.76 M/mm3 (3.65-5.03) 04/04/19 05:43 Hgb 12.6 gm/dl (10.1-14.3) 04/04/19 05:43 Hct 38.2 % (30.3-42.9) 04/04/19 05:43 MCV 102 fl (79-97) H 04/04/19 05:43 MCH 34 pg (28-32) H 04/04/19 05:43 MCHC 33 % (30-34) 04/04/19 05:43 RDW 17.1 % (13.2-15.2) H 04/04/19 05:43 Plt Count 324 K/mm3 (140-440) 04/04/19 05:43 Lymph % (Auto) [employer]o Mechanical Engineer 04/04/19 05:43 [place] % (Auto) 10.9 % (0.0-7.3) H 04/02/19 05:07 Eos % (Auto) 6.9 % (0.0-4.3) H 04/02/19 05:07 Baso % (Auto) 0.9 % (0.0-1.8) 04/02/19 05:07 Lymph # 1.0 K/mm3 (1.2-5.4) L 04/02/19 05:07 [place] # 0.4 K/mm3 (0.0-0.8) 04/02/19 05:07 Eos # 0.2 K/mm3 (0.0-0.4) 04/02/19 05:07 Baso # 0.0 K/mm3 (0.0-0.1) 04/02/19 05:07 Add Manual Diff Complete 04/04/19 05:43 Total Counted 100 04/04/19 05:43 Seg Neutrophils % [employer] Mechanical Engineer 04/04/19 05:43 Seg Neuts % (Manual) 35.0 % (40.0-70.0) L 04/04/19 05:43 0 % 04/04/19 05:43 57.0 % (13.4-35.0) H 04/04/19 05:43 Reactive Lymphs % (Man) 0 % 04/04/19 05:43 4.0 % (0.0-7.3) 04/04/19 05:43 3.0 % (0.0-4.3) 04/04/19 05:43 1.0 % (0.0-1.8) 04/04/19 05:43 0 % 04/04/19 05:43 0 % 04/04/19 05:43 0 % 04/04/19 05:43 0 % 04/04/19 05:43 Nucleated RBC % Not Reportable 04/04/19 05:43 Seg Neutrophils # 1.7 K/mm3 (1.8-7.7) L 04/02/19 05:07 Seg Neutrophils # Man 1.1 K/mm3 (1.8-7.7) L 04/04/19 05:43 Band Neutrophils # 0.0 K/mm3 04/04/19 05:43 1.8 K/mm3 (1.2-5.4) 04/04/19 05:43 Abs React Lymphs (Man) 0.0 K/mm3 04/04/19 05:43 0.1 K/mm3 (0.0-0.8) 04/04/19 05:43 0.1 K/mm3 (0.0-0.4) 04/04/19 05:43 0.0 K/mm3 (0.0-0.1) 04/04/19 05:43 0.0 K/mm3 04/04/19 05:43 0.0 K/mm3 04/04/19 05:43 0.0 K/mm3 04/04/19 05:43 Blast Cells # 0.0 K/mm3 04/04/19 05:43 WBC Morphology Not Reportable 04/04/19 05:43 Hypersegmented Neuts Not Reportable 04/04/19 05:43 Hyposegmented Neuts Not Reportable 04/04/19 05:43 Hypogranular Neuts Not Reportable 04/04/19 05:43 Not Reportable 04/04/19 05:43 Not Reportable 04/04/19 05:43 Not Reportable 04/04/19 05:43 Not Reportable 04/04/19 05:43 Not Reportable 04/04/19 05:43 Not Reportable 04/04/19 05:43 Consistent w auto 04/04/19 05:43 Not Reportable 04/04/19 05:43 Plt Clumps, EDTA Not Reportable 04/04/19 05:43 Not Reportable 04/04/19 05:43 Not Reportable 04/04/19 05:43 Not Reportable 04/04/19 05:43 Plt Morphology Comment Not Reportable 04/04/19 05:43 RBC Morphology Not Reportable 04/04/19 05:43 Dimorphic RBCs Not Reportable 04/04/19 05:43 Not Reportable 04/04/19 05:43 Not Reportable 04/04/19 05:43 Not Reportable 04/04/19 05:43 Few 04/04/19 05:43 Not Reportable 04/04/19 05:43 Not Reportable 04/04/19 05:43 Not Reportable 04/04/19 05:43 Not Reportable 04/04/19 05:43 Not Reportable 04/04/19 05:43 Not Reportable 04/04/19 05:43 Not Reportable 04/04/19 05:43 Not Reportable 04/04/19 05:43 Not Reportable 04/04/19 05:43 Not Reportable 04/04/19 05:43 Not Reportable 04/04/19 05:43 Not Reportable 04/04/19 05:43 Not Reportable 04/04/19 05:43 Not Reportable 04/04/19 05:43 Not Reportable 04/04/19 05:43 Acanthocytes (Spur) Not Reportable 04/04/19 05:43 Rouleaux Not Reportable 04/04/19 05:43 Not Reportable 04/04/19 05:43 Not Reportable 04/04/19 05:43 Not Reportable 04/04/19 05:43 Not Reportable 04/04/19 05:43 Hem Pathologist Commnt No 04/04/19 05:43 Sodium 142 mmol/L (137-145) 04/04/19 05:43 Potassium 3.6 mmol/L (3.6-5.0) 04/04/19 05:43 Chloride 105.7 mmol/L (98-107) 04/04/19 05:43 Carbon Dioxide 23 mmol/L (22-30) 04/04/19 05:43 17 mmol/L 04/04/19 05:43 BUN 4 mg/dL (7-17) L 04/04/19 05:43 0.6 mg/dL (0.7-1.2) L 04/04/19 05:43 Estimated GFR > 60 ml/min 04/04/19 05:43 7 % 04/04/19 05:43 Glucose 160 mg/dL (65-100) H 04/04/19 05:43 Calcium 9.4 mg/dL (8.4-10.2) 04/04/19 05:43 < 0.20 mg/dL (0.1-1.2) 04/04/19 05:43 < 0.2 mg/dL (0-0.2) 03/31/19 15:30 0.0 mg/dL 03/31/19 15:30 AST 38 units/L (5-40) 04/04/19 05:43 ALT 18 units/L (7-56) 04/04/19 05:43 158 units/L (35-129) H 04/04/19 05:43 6.9 g/dL (6.3-8.2) 04/04/19 05:43 4.2 g/dL (3.9-5) 04/04/19 05:43 1.6 % 04/04/19 05:43 23 units/L (13-60) 03/31/19 15:30 Vitamin B12 812.2 pg/mL (211-911) 04/01/19 14:41 12.96 ng/mL (7.3-26.0) 04/01/19 14:41 Yellow (Yellow) 03/31/19 09:06 Clear (Clear) 03/31/19 09:06 6.0 (5.0-7.0) 03/31/19 09:06 Ur Specific [place] 1.013 (1.003-1.030) 03/31/19 09:06 <15 mg/dl mg/dL (Negative) 03/31/19 09:06 Neg mg/dL (Negative) 03/31/19 09:06 Neg mg/dL (Negative) 03/31/19 09:06 Neg (Negative) 03/31/19 09:06 Neg (Negative) 03/31/19 09:06 Neg (Negative) 03/31/19 09:06 < 2.0 mg/dL (<2.0) 03/31/19 09:06 Ur Leukocyte Esterase Mod (Negative) 03/31/19 09:06 1.0 /HPF (0.0-6.0) 03/31/19 09:06 2.0 /HPF (0.0-6.0) 03/31/19 09:06 U Epithel Cells (Auto) 1.0 /HPF (0-13.0) 03/31/19 09:06 Plasma Zinc 78 mcg/dL (60-130) 04/01/19 10:26 C. difficile Tox (PCR) Negative (Negative) 04/02/19 11:07 Active Medications - Current Medications Current Medications: Generic Name Dose Route Start Last Admin Trade Name Freq PRN Reason Stop Dose Admin Acetaminophen 650 mg 03/31/19 22:46 Tylenol PO Q4H PRN Pain MILD(1-3)/Fever >100.5/WRAY Al Hydrox/Mg Hydrox/Simethicone 15 ml 04/01/19 09:44 04/04/19 18:08 Alum-Mag Hydrox-Simeth 172-208-31xw/5ml PO 15 ml Q4H PRN Administration Indigestion Alprazolam 0.5 mg 04/01/19 15:25 04/04/19 22:19 Xanax PO 0.5 mg Q8H PRN Administration Anxiety Amlodipine Besylate 10 mg 04/04/19 01:32 04/05/19 10:28 Norvasc PO 10 mg DAILY THEO Administration Dextrose/Sodium Chloride 1,000 mls @ 100 mls/hr 04/04/19 10:00 04/05/19 10:12 D5/0.45ns IV 100 mls/hr DIRECT THEO Administration Sodium Chloride 1,000 mls @ 50 mls/hr 04/05/19 12:00 Nacl 0.9% 1000 Ml IV 04/06/19 11:59 DIRECT THEO Lidocaine HCl 15 ml 04/03/19 09:48 04/04/19 18:08 Lidocaine Viscous 2% PO 15 ml Q6HR PRN Administration Mouth Pain Lisinopril 40 mg 04/05/19 10:00 04/05/19 10:26 Zestril PO 40 mg QDAY THEO Administration Metoprolol Tartrate 50 mg 04/04/19 14:00 04/05/19 10:30 Lopressor PO 50 mg TID THEO Administration Mirtazapine 15 mg 04/01/19 22:00 04/04/19 21:30 Remeron PO 15 mg QHS THEO Administration Morphine Sulfate 2 mg 04/04/19 09:33 04/05/19 05:46 Morphine IV 2 mg Q4H PRN Administration Pain , Severe (7-10) Ondansetron HCl 4 mg 03/31/19 22:55 04/05/19 10:11 Zofran IV 4 mg Q4H PRN Administration Nausea And Vomiting Oxycodone HCl 10 mg 04/02/19 02:54 04/05/19 10:25 Roxicodone PO 10 mg Q4H PRN Administration Pain, Moderate (4-6) Pantoprazole Sodium 40 mg 04/01/19 10:00 04/05/19 10:11 Protonix IV 40 mg BID THEO Administration Sodium Chloride 10 ml 04/01/19 10:00 04/05/19 10:33 Sodium Chloride Flush Syringe 10 Ml IV Not Given BID THEO Sodium Chloride 10 ml 03/31/19 22:46 04/02/19 03:15 Sodium Chloride Flush Syringe 10 Ml IV 10 ml PRN PRN Administration LINE FLUSH Zolpidem Tartrate 5 mg 03/31/19 22:46 04/03/19 22:10 Ambien PO 5 mg QHS PRN Administration Insomnia Nutrition/Malnutrition Assess - Dietary Evaluation Nutrition/Malnutrition Findings: Nutrition Notes Start: 04/01/19 15:39 Freq: Status: Active Protocol: Document 04/04/19 15:30 RM (Rec: 04/04/19 15:35 RM [id number]) Nutrition Notes Initial or Follow up Reassessment Other Pertinent Diagnosis Celiac diease, Hx C. diff N/V, GERD, Abdominal pain Current Diet Full liquid Labs/Tests Reviewed Pertinent Medications Reviewed Height 5 ft 6 in Weight 64 kg [place] Body Weight (kg) 59.09 BMI 22.7 Subjective/Other Information Pt NPO this morning. Full liquid diet ordered for lunch. NPO after midnight ordered later today. Pt and pt relative asleep on pt bed at time of visit. Per pt tech pt didnt eat anything yesterday. Burn Absent Trauma Absent #1 Nutrition Diagnosis Inadequate oral intake Diagnosis Progress(for reassessment Continues documentation) Is patient on ventilator? No Is Patient Ambulatory and/or Out of Bed Yes REE-([facility]-ambulatory/OOB) [ [id number] [id number]] Calculation Used for Recommendations [facility] Additional Notes Protein Needs: 48-60g (0.8-1g/ kg) Fluid Needs: 1 ml/kcal Nutrition Intervention Change Diet Order: Continue current Add Supplement/Snack (indicate name/kcal Ensure Enlive 1 daily once /protein ) diet advanced Provides kCal: 350 Provides Protein (gm) 20 Goal #1 Diet advancement Anticipated Discharge Needs: Unable to determine at this time Follow-Up By: 04/06/19 Additional Comments Follow for diet advancement, PO intakes
[2019-04-05] MEDS ORDERED: NACL 0.9% 1000 ML 1,000 ML IV SCH (12:00)
[2019-04-05] MEDS ORDERED: ZOFRAN ONE (12:47)
[2019-04-05] MEDS ORDERED: DIPRIVAN 10 MG/ML IV ONE (12:48)
[2019-04-05] MEDS ORDERED: DILAUDID ONE (12:48)
--- NOTE | 2019-04-05 12:59 | Anesthesia Consultation ---
Anesthesia Consult and Med Hx Date of service: 04/05/19 - Airway Anesthetic Teeth Evaluation: Good ROM Head & Neck: Adequate Mental/Hyoid Distance: Adequate Mallampati Class: Class III Intubation Access Assessment: Good - Pulmonary Exam CTA: Yes - Cardiac Exam Cardiac Exam: No Murmur - Pre-Operative Health Status ASA Pre-Surgery Classification: ASA3 Proposed Anesthetic Plan: MAC - Cardiovascular System Hx Hypertension: Yes - Central Nervous System Hx Psychiatric Problems: No - Hematic Hx Anemia: Yes - Other Systems Hx Cancer: No
--- NOTE | 2019-04-05 12:59 | Anesthesia Day of Surgery ---
Anesthesia Day of Surgery - Day of Surgery Patient Examined: Yes Patient H&P Reviewed: Yes Patient is NPO: Yes Beta Blockers: No
--- NOTE | 2019-04-05 13:44 | Discharge Summary ---
Providers - Providers Date of Admission: 03/31/19 22:46 Date of discharge: 04/05/19 Attending physician: KRISTEN REA 03/31/19 22:26 Consult to Physician [CONS] Stat Comment: [employer]/JOSSELINE Crawford spoke with Dr. Moreno @ [phone] Consulting Provider: JIM MORENO Physician Instructions: Reason For Exam: hx of erosive PUD, heme positive stool 04/04/19 15:42 Physical Therapy Evaluation and Treat [CONS] Routine Comment: Reason For Exam: right foot drop [facility] Condition: Stable Hospital course: Patient is a 53 yo woman with a history of Gastric bypass, celiac disease, C. diffe colitis s/p fecal transplant x 2, hypertension, diverticulosis, IBS, SBO, GERD, anastomatic ulcers, chronic pain syndrome with narcotic use and chronic diarrhea who presented to [facility] ED with n/v/epigastric pains/diarrhea with intermittent melena and hematochezia. Epigastric pain with Intractable nausea and vomiting -Probably due to gastritis versus stoma ulcer -CT abdomen/pelvis suspicious for gastritis and small pericardial effusion -On IV Protonix and when necessary narcotics - consulted signal intelligence/electronic warfare , plan for EGD GI bleed with Melena -On IV Protonix -H/H stable, will monitor and transfuse patient as needed -GI consulted and following S/p Gastric bypass in 2001 with H/o of Stoma ulcer on protonix, Following up with Dr Chuy Day for possible revision outpt /Hypertensive urgency -On when necessary IV antihypertensive, will monitor blood pressure /Acute on chronic diarrhea -Status post fecal Implants 2 -negative for C. difficile toxin -d/c Contact isolation, supportive care, loperamide as needed Small pericardial effusion per imaging -Further evaluation with Echocardiogram reviewed, no sign of tamponade, Cardiology following Acute metabolic acidosis -On IV fluid, will monitor bicarbonate level Mild hyponatremia - corrected -On IV fluid, will monitor sodium level DVT prophylaxis with SCD Disposition: continue inpatient discharge, possible d/c today, For discharge when medically stable Patient did not get EGD on 04/04/19 because she ate then refused. EGD to be done today According to [place] speech/language therapist aware patient has received the followin03/29/19 Tylenol#[address] Solis Bennett 03/10/19 Tylenol#3 quantity of [address] Ravi Saldana 03/02/19 Oxycodone 5mg quantity of [address] Rajinder Arredondo 02/27/19 Oxycodone 5mg quantiy of [address] Rajinder Arredondo 02/13/19 Oxycodone 5mg quantity of [address] Rajinder Arredondo 02/01/19 Oxycodone 5mg quantity of [address] Narcisa Arredondo Suffice to say I will not be refilling any narcotics meds. She should use only one doctor with a signed contract. Disposition: DC-01 TO HOME OR SELFCARE Time spent for discharge: 34 minutes Core Measure Documentation - Palliative Care Palliative Care/ Comfort Measures: Not Applicable - Core Measures Any of the following diagnoses?: none - VTE Discharge Requirements Deep Vein Thrombosis/Pulmonary Embolism Present on Admission: No Has pt received <5 days of overlap therapy or INR<2.0: No Anticoagulant overlap therapy prescribed at discharge: No Contraindication No Overlap Therapy order at DC: Not Indicated Exam - Physical Exam Narrative exam: Gen: frail appearing NAD, Awake, Alert, Orientated HEENT: NCAT, EOMI, PERRL, OP Clear Neck: supple, no adenopathy, no thyromegaly, no JVD CVS/Heart: RRR, normal S1S2, pulses present bilaterally Chest/Lungs: CTA B, Symmetrical chest exddfpansion, good air entry bilaterally GI/Abdomen: soft, epigastric abdominal pains, good bowel sounds, no guarding or rebound /Bladder: no suprapubic tenderness, no CVA or paraspinal tenderness Extermity/Skin: no c/c/e, no obvious rash MSK: FROM x 4 Neuro: CN 2-12 grossly intact, no new focal deficits Psych: calm - Constitutional Vitals: Temp Pulse Resp BP Pulse Ox 98.5 F 72 13 136/87 98 04/05/19 12:43 04/05/19 12:43 04/05/19 12:43 04/05/19 12:43 04/05/19 12:43 Plan Activity: other (no strenous activity unless cleared by PCP) Diet: advance as tolerated Follow up with: ERIC DENNEY MD [Primary Care Provider] - 3-5 Days MIN,JIM KNIGHT MD [Staff Physician] - 7 Days Prescriptions: Metoprolol [Lopressor TAB] 50 mg PO TID #90 tablet Lisinopril [Zestril TAB] 40 mg PO QDAY #30 tablet
[2019-04-05] MEDS ORDERED: NACL 0.9% 1000 ML 1,000 ML ONE (13:55)
--- NOTE | 2019-04-05 14:18 | Operative Report ---
Operative Report Operative Report: Date of procedure: 04/04/2019 Procedure: Esophagogastroduodenoscopy with biopsies Preprocedure diagnosis: nausea/vomiting, epigastric pain, melena Post procedure diagnosis: mild gastritis Endoscopist: Elliot Moreno MD Anesthesia: Monitored anesthesia care per anesthesia department Medications: Propofol per anesthesia Estimated blood loss: 0 After careful discussion of the nature and purpose of the procedure as well as details the technique risks benefits and alternatives consent was obtained. The patient was placed in the left lateral decubitus position and medicated per anesthesia. The tip of the Olympus 190 video scope was passed per orum under direct vision into the esophagus and advanced into the gastric pouch and efferent gastrojejunostomy limb. The small bowel limb appeared normal with normal appearing mucosa. The scope was withdrawn into the stomach and the sto mach then gently insufflated with air. The gastric pouch showed mild erythematous mucosa but otherwise normal. No signs of gastric ulcers or erosions. Biopsies were obtained from the gastric pouch. The stomach was further insufflated and the scope was then retroflexed and partially withdrawn. The scope was then withdrawn in the forward position. The esophagogastric junction was at 37 cm. The gastrojejunostomy anastomosis site was at around 42 cm. The esophageal body was normal throughout. The procedure was was well tolerated and the patient was observed in recovery. Impressions: 1. Mild gastritis in the otherwise normal appearing gastric pouch with surgical changes from prior gastric bypass. 2. No signs of gastric ulcers or erosions. No signs of bleeding. 3. Her chronic epigastric pain likely due to chronic abdominal pain, possible neuropathic component, scar tissue. Plan: 1. Continue with PPI PO. 2. GI cocktail prn. 3. Consider starting neuropathic agents including gabapentin or TCA. 4. Patient to follow up with her bariatric surgeon, Dr. Day as outpatient. 5. Will sign off.
[2019-04-05] MEDS: ALUM-MAG HYDROX-SIMETH 200-200-20MG/5ML PO PRN (15:29)
[2019-04-05] MEDS: LIDOCAINE VISCOUS 2% PO PRN (15:30)
[2019-04-05 15:34] VITALS: BP 148/85
== END 2019-04-05 16:00 | disposition home or self-care (01) | DRG 378 ==
LOC: ED 14:38 → 3A 22:46
PROVIDERS: ADMIT Internal Medicine; ATTEND Internal Medicine
PROC: 0DB68ZX Excision of Stomach, Via Natural or Artificial Opening Endoscopic, Diagnostic (ICD-10-PCS; principal; 2019-04-05)
DX: K29.01 Acute gastritis with bleeding (principal); E87.2 Acidosis; E87.1 Hypo-osmolality and hyponatremia; I31.3 Pericardial effusion (noninflammatory); K28.4 Chronic or unspecified gastrojejunal ulcer with hemorrhage; I16.0 Hypertensive urgency; I10 Essential (primary) hypertension; K21.9 Gastro-esophageal reflux disease without esophagitis; I08.1 Rheumatic disorders of both mitral and tricuspid valves; K58.9 Irritable bowel syndrome, unspecified; G89.4 Chronic pain syndrome; Z95.1 Presence of aortocoronary bypass graft
CPT/HCPCS: 36415; 74177; 80048; 80053; 80076; 81001; 82271; 82607; 82747; 83690; 84630; 85007; 85014; 85018; 85025; 87493; 88305; 88342; 93005; 93010; 93306; 96361; 96374; 96375; 96376; G0378; C9113; J1170; J2270; J2405; J2704; J7030; Q9967

== ENCOUNTER 2019-05-29 12:19 | Observation (INO) | payer MEDICAID ==
--- NOTE | 2019-05-29 12:31 | Emergency Department Report ---
Blank Doc - Documentation Documentation: This is a 54-year-old female that presents with abdominal pain with n/v/d. This initial assessment/diagnostic orders/clinical plan/treatment(s) is/are subject to change based on patient's health status, clinical progression and re- assessment by fellow clinical providers in the ED. Further treatment and workup at subsequent clinical providers discretion. Patient/guardians urged not to elope from the ED as their condition may be serious if not clinically assessed and managed. Initial orders include: 1- Patient sent to [facility] for further evaluation and treatment 2- labs 3- UA
[2019-05-29 13:01] LABS: Basophils % (Auto) 0.3 % (0.0-1.8); Eosinophils % (Auto) 0.8 % (0.0-4.3); Hematocrit 37.2 % (30.3-42.9); Hemoglobin 12.4 gm/dl (10.1-14.3); Lymphocytes # (Auto) 0.6 K/mm3 (1.2-5.4); Lymphocytes % (Auto) 19.8 % (13.4-35.0); Mean Corpuscular HGB Conc 33 % (30-34); Mean Corpuscular Volume 105 fl (79-97); Monocytes # (Auto) 0.2 K/mm3 (0.0-0.8); Monocytes % (Auto) 7.5 % (0.0-7.3); Platelet Count 283 K/mm3 (140-440); Red Blood Count 3.54 M/mm3 (3.65-5.03); Red Cell Distribution Width 15.6 % (13.2-15.2)
[2019-05-29 13:20] LABS: Alanine Aminotransferase 18 units/L (7-56); Albumin 4.3 g/dL (3.9-5); BUN/Creatinine Ratio 7; Blood Urea Nitrogen 4 mg/dL (7-17); Calcium 9.5 mg/dL (8.4-10.2); Hemolysis Index 12
[2019-05-29] MEDS ORDERED: NACL 0.9% 1000 ML 1,000 ML IV ONE (13:53)
[2019-05-29] MEDS ORDERED: MORPHINE IV ONE ×2 (13:54→17:04)
[2019-05-29] MEDS ORDERED: PEPCID IV ONE (13:54)
[2019-05-29] MEDS ORDERED: ZOFRAN IV ONE ×2 (13:54→15:53)
--- NOTE | 2019-05-29 13:56 | Emergency Department Report ---
ED Abdominal Pain HPI - General Chief Complaint: Abdominal Pain Stated Complaint: ABD PAIN/VOMITING/DIARRHEA Time Seen by Provider: 05/29/19 12:29 Source: patient Mode of arrival: Ambulatory Limitations: No Limitations - History of Present Illness Initial Comments: Mrs. 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 PCP Dr. Solis Bennett MD Complaint: abdominal pain -: Gradual, week(s) (3) Location: diffuse Severity: moderate Quality: cramping Consistency: constant Improves With: nothing Worsens With: nothing Associated Symptoms: nausea, vomiting, diarrhea - Related Data Previous Rx's Medication Instructions Recorded Last Taken Type ALPRAZolam [Xanax TAB] 0.5 mg PO TID PRN #15 04/05/19 Unknown Rx Acetaminophen [Acetaminophen TAB] 325 mg PO Q4H PRN #15 tablet 04/05/19 Unknown Rx Lisinopril [Zestril TAB] 40 mg PO QDAY #30 tablet 04/05/19 Unknown Rx Metoprolol [Lopressor TAB] 50 mg PO TID #90 tablet 04/05/19 Unknown Rx Mirtazapine [Remeron 15mg TAB] 15 mg PO QHS #30 04/05/19 Unknown Rx Oxycodone HCl [oxyCODONE] 10 mg PO Q6H PRN #5 04/05/19 Unknown Rx Pantoprazole [Protonix INJ] 40 mg PO BID #60 04/05/19 Unknown Rx Promethazine [Phenergan] 25 mg PO Q6HR PRN #30 04/05/19 Unknown Rx Zolpidem [Ambien] 10 mg PO QHS PRN #15 04/05/19 Unknown Rx amLODIPine [Norvasc] 5 mg PO DAILY #30 04/05/19 Unknown Rx Allergies Allergy/AdvReac Type Severity Reaction Status Date / Time hydralazine Allergy Unknown Verified 05/29/19 12:21 NSAIDS (Non-Steroidal Allergy Unknown Verified 05/29/19 12:21 Anti-Inflamma tramadol Allergy Unknown Verified 05/29/19 12:21 metronidazole [From Flagyl] AdvReac Vomiting Verified 05/29/19 12:21 ED Review of Systems ROS: Stated complaint: ABD PAIN/VOMITING/DIARRHEA Other details as noted in HPI Comment: All other systems reviewed and negative Constitutional: denies: fever, malaise Respiratory: denies: cough Gastrointestinal: abdominal pain, nausea, vomiting, diarrhea ED Past Medical Hx - Past Medical History Previous Medical History?: Yes Hx Hypertension: Yes Additional medical history: As per HPI - Surgical History Additional Surgical History: back, gastric bypass - Social History Smoking Status: Never Smoker Substance Use Type: None - Medications Home Medications: Home Medications Medication Instructions Recorded Confirmed Last Taken Type ALPRAZolam [Xanax TAB] 0.5 mg PO TID PRN #15 04/05/19 04/01/19 Unknown Rx Acetaminophen [Acetaminophen TAB] 325 mg PO Q4H PRN #15 tablet 04/05/19 Unknown Rx Lisinopril [Zestril TAB] 40 mg PO QDAY #30 tablet 04/05/19 Unknown Rx Metoprolol [Lopressor TAB] 50 mg PO TID #90 tablet 04/05/19 Unknown Rx Mirtazapine [Remeron 15mg TAB] 15 mg PO QHS #30 04/05/19 04/01/19 Unknown Rx Oxycodone HCl [oxyCODONE] 10 mg PO Q6H PRN #5 04/05/19 04/01/19 Unknown Rx Pantoprazole [Protonix INJ] 40 mg PO BID #60 04/05/19 04/01/19 Unknown Rx Promethazine [Phenergan] 25 mg PO Q6HR PRN #30 04/05/19 04/01/19 Unknown Rx Zolpidem [Ambien] 10 mg PO QHS PRN #15 04/05/19 04/01/19 Unknown Rx amLODIPine [Norvasc] 5 mg PO DAILY #30 04/05/19 04/02/19 Unknown Rx ED Physical Exam - General Limitations: No Limitations General appearance: alert, in no apparent distress - Head Head exam: Present: atraumatic, normocephalic - Eye Eye exam: Present: normal appearance - ENT ENT exam: Present: mucous membranes moist - Neck Neck exam: Present: normal inspection, full ROM - Respiratory Respiratory exam: Present: normal lung sounds bilaterally. Absent: respiratory distress, wheezes, rales, rhonchi - Cardiovascular Cardiovascular Exam: Present: regular rate, normal rhythm, normal heart sounds. Absent: systolic murmur, diastolic murmur, rubs, gallop - GI/Abdominal GI/Abdominal exam: Present: soft, normal bowel sounds. Absent: distended, tenderness, guarding, rebound - Extremities Exam Extremities exam: Present: normal inspection - Back Exam Back exam: Present: normal inspection - Neurological Exam Neurological exam: Present: alert, oriented X3 - Psychiatric Psychiatric exam: Present: normal affect, normal mood - Skin Skin exam: Present: warm, dry, intact, normal color. Absent: rash ED Course Vital Signs 05/29/19 05/29/19 12:30 14:43 Temperature 98 F Pulse Rate 61 Respiratory 16 18 Rate Blood Pressure 173/109 O2 Sat by Pulse 98 Oximetry ED Medical Decision Making - Lab Data Result diagrams: 05/29/19 12:44 05/29/19 12:44 - Medical Decision Making Mrs. Marquez presents with 3 weeks of abdominal pain nausea vomiting diarrhea. CBC notable for mild leukopenia. Chemistry notable for Mild hypochloremia. Mild hypokalemia. She received IV fluid therapy, she insisted on IV pain medication. Also provided Zofran and famotidine. No evidence of peritonitis or obstruction on my examination. Due to complexity and severe symptoms, I requested consultation by my Hospitalist colleague Dr. Diaz who will consider hospital admission. Critical care attestation.: If time is entered above; I have spent that time in minutes in the direct care of this critically ill patient, excluding procedure time. ED Disposition Clinical Impression: Abdominal pain, Gastritis, Nausea vomiting and diarrhea, History of gastric ulcer, S/P gastric bypass Disposition: OP ADMIT IP TO THIS HOSP Is pt being admited?: Yes Does the pt Need Aspirin: No Condition: Stable
[2019-05-29] MEDS ORDERED: ALUM-MAG HYDROX-SIMETH 200-200-20MG/5ML PO ONE (14:52)
[2019-05-29] MEDS ORDERED: LIDOCAINE VISCOUS 2% PO ONE (14:53)
[2019-05-29 15:23] LABS: Color,Urine Yellow (Yellow)
[2019-05-29 15:24] LABS: Bilirubin,Urine NEG (Negative); Blood,Urine NEG (Negative); Mucus,Urine FEW /HPF; Protein,Urine <15 mg/dL mg/dL (Negative); Urobilinogen,Urine < 2.0 mg/dL (<2.0)
[2019-05-29] MEDS ORDERED: SODIUM CHLORIDE FLUSH SYRINGE 10 ML IV PRN (15:55)
[2019-05-29] MEDS ORDERED: ZOFRAN IV PRN (15:55)
[2019-05-29] MEDS ORDERED: TYLENOL PO PRN (15:55)
--- NOTE | 2019-05-29 15:55 | History and Physical Report ---
History of Present Illness Chief complaint: My stomach hurts, and I cant hold anything down History of present illness: 54 YO Female with HTN, Celiac Disease, IBS, GERD, PUD, Chronic Pain Syndrome, Chronic Diarrhea presents to ED for evaluation. Pt states that she has experienced multiple episodes of loose stools over the past 3 weeks, with worsening symptoms over the past 1 week. Pt also reports abdominal pain over the past 3 days. Pain is 4/10, constant, nonradiating, diffuse, associated with nausea, and loose stools. Pt states that she is unable to tolerate oral diet, and unable to keep her medication down. Pt transported to [facility] via private vehicle. Pt seen and evaluated in ED and found to have Intractible nausea and vomiting, and hypertensive urgency due to inability to tolerate oral intake. Pt admitted to medical floor and treated with IVF resuscitation. Prior admission on 03/31/19 reviewed. No medication listed for reconciliation at time of exam. Past History Past Medical History: GERD, hypertension, other (PUD, IBS, Celiac Disease,) Past Surgical History: bowel surgery Social history: . denies: smoking, alcohol abuse, prescription drug abuse, IV drug use Family history: no significant family history (reviewed) Medications and Allergies Allergies Allergy/AdvReac Type Severity Reaction Status Date / Time hydralazine Allergy Unknown Verified 05/29/19 12:21 NSAIDS (Non-Steroidal Allergy Unknown Verified 05/29/19 12:21 Anti-Inflamma tramadol Allergy Unknown Verified 05/29/19 12:21 metronidazole [From Flagyl] AdvReac Vomiting Verified 05/29/19 12:21 Home Medications Medication Instructions Recorded Confirmed Last Taken Type ALPRAZolam [Xanax TAB] 0.5 mg PO TID PRN #15 04/05/19 05/29/19 Unknown Rx Mirtazapine [Remeron 15mg TAB] 15 mg PO QHS #30 04/05/19 05/29/19 Unknown Rx Oxycodone HCl [oxyCODONE] 10 mg PO Q6H PRN #5 04/05/19 05/29/19 Unknown Rx Promethazine [Phenergan] 25 mg PO Q6HR PRN #30 04/05/19 05/29/19 Unknown Rx Zolpidem [Ambien] 10 mg PO QHS PRN #15 04/05/19 05/29/19 Unknown Rx amLODIPine [Norvasc] 5 mg PO DAILY #30 04/05/19 05/29/19 05/29/19 Rx Dicyclomine [Bentyl] 20 mg PO BID 05/29/19 05/29/19 Unknown History Gabapentin [Neurontin] 300 mg PO TID 05/29/19 05/29/19 Unknown History Pantoprazole [Protonix] 40 mg PO QDAY 05/29/19 05/29/19 Unknown History Sucralfate [Carafate] 10 ml PO QID 05/29/19 05/29/19 Unknown History Review of Systems Constitutional: no weight loss, no weight gain, no fever, no chills Ears, nose, mouth and throat: no ear pain, no ear discharge, no tinnitis, no decreased hearing, no nasal discharge Breasts: no change in shape, no swelling, no skin changes, no Cardiovascular: no chest pain, no orthopnea, no palpitations, no rapid/irregular heart beat Respiratory: no cough, no excessive sputum, no hemoptysis Gastrointestinal: nausea, vomiting, diarrhea, no hematemesis, no coffee ground emesis, no BRBPR, no melena, no hematochezia, no loss of appetite, no early satiety, no heartburn Genitourinary Female: no pelvic pain, no flank pain, no menorrhagia, no dysuria, no urinary frequency, no urgency Rectal: no pain, no incontinence, no bleeding Musculoskeletal: no neck stiffness, no neck pain, no arm numbness/tingling, no shooting leg pain, no leg numbness/tingling Neurological: no transient paralysis, no paralysis, no weakness, no tingling, no seizures, no syncope, no tremors Psychiatric: no anxiety, no memory loss, no change in sleep habits, no hypersomnia, no change in appetite, no change in libido, no anxiety attacks, no confusion, no irritability Endocrine: no cold intolerance, no heat intolerance, no polyphagia, no excessive thirst, no polyuria, no excessive sweating Hematologic/Lymphatic: no easy bruising, no easy bleeding, no lymphadenopathy Allergic/Immunologic: no wheezing, no persistent infections, no anaphylaxis Exam - Constitutional Vitals: Temp Pulse Resp BP Pulse Ox 98 F 61 18 173/109 98 05/29/19 12:30 05/29/19 12:30 05/29/19 14:43 05/29/19 12:30 05/29/19 12:30 General appearance: Present: no acute distress, well-nourished - EENT Eyes: Present: PERRL ENT: hearing intact, clear oral mucosa - Neck Neck: Present: supple, normal ROM - Respiratory Respiratory effort: normal Respiratory: bilateral: CTA - Cardiovascular Heart Sounds: Present: S1 & S2. Absent: rub, click - Extremities Extremities: pulses symmetrical, No edema Peripheral Pulses: within normal limits - Abdominal General gastrointestinal: Present: soft, non-tender, non-distended, normal bowel sounds Female genitourinary: Present: normal - Integumentary Integumentary: Present: clear, warm, dry - Musculoskeletal Musculoskeletal: gait normal, strength equal bilaterally - Psychiatric Psychiatric: appropriate mood/affect, intact judgment & insight - Neurologic Neurologic: CNII-XII intact, moves all extremities Results - Labs CBC & Chem 7: 05/29/19 12:44 05/29/19 12:44 Labs: Abnormal lab results 05/29/19 05/29/19 Range/Units 12:44 12:44 WBC 3.3 L (4.5-11.0) K/mm3 RBC 3.54 L (3.65-5.03) M/mm3 MCV 105 H (79-97) fl MCH 35 H (28-32) pg RDW 15.6 H (13.2-15.2) % [place] % (Auto) 7.5 H (0.0-7.3) % Lymph # 0.6 L (1.2-5.4) K/mm3 Seg Neutrophils % 71.6 H (40.0-70.0) % Potassium 3.2 L (3.6-5.0) mmol/L Chloride 107.4 H (98-107) mmol/L BUN 4 L (7-17) mg/dL Creatinine 0.6 L (0.7-1.2) mg/dL Glucose 130 H (65-100) mg/dL Assessment and Plan - Patient Problems (1) Gastritis Current Visit: Yes Status: Acute Qualifiers: Chronicity: unspecified Plan to address problem: Bowel rest, IVF resuscitation therapy, clear liquid diet, advance as tolerated, CT ABdomen pelvis, supportive care (2) PUD (peptic ulcer disease) Current Visit: Yes Status: Acute Plan to address problem: PPI therapy, outpatient GI f/u care, continue supportive care. (3) IBS (irritable bowel syndrome) Current Visit: Yes Status: Acute Qualifiers: Irritable bowel syndrome type: with diarrhea Qualified Code(s): K58.0 - Irritable bowel syndrome with diarrhea Plan to address problem: bowel rest, IVF resuscitation therapy, CT Abdomen pelvis, serial abdominal exam (4) Abdominal pain Current Visit: Yes Status: Acute Qualifiers: Abdominal location: generalized Qualified Code(s): R10.84 - Generalized abdominal pain Plan to address problem: Pain control, CT Abdomen/Pelvis, bowel rest, supportive care. (5) DVT prophylaxis Current Visit: Yes Status: Acute Plan to address problem: SCD to BLE while in bed, Pt ambulatory
[2019-05-29] MEDS ORDERED: APRESOLINE IV PRN (15:59)
[2019-05-29] MEDS ORDERED: NACL 0.45% 1000 ML 1,000 ML IV SCH (16:00)
[2019-05-29] MEDS ORDERED: PHENERGAN PR ONE (16:36)
--- NOTE | 2019-05-29 17:43 | Cat Scan Report ---
CT of the abdomen and pelvis with contrast The patient received 100 cc of Omnipaque 300 for intravenous contrast INDICATION: Upper abdominal pain COMPARISON: 03/31/2019 FINDINGS: Lung bases are clear. Gallbladder has been removed. No biliary tree dilation. The liver, sp sol, pancreas, adrenal glands and kidneys show no significant abnormalities. There are postoperative changes of the stomach. No fluid or adenopathy in the upper abdomen. CT of the pelvis shows no pelvic or inguinal adenopathy. No pelvic fluid or inflammatory process. Wha t appears to be the appendix is normal. No hernia or bowel obstruction. Postoperative changes of the lumbar spine are seen. IMPRESSION: No significant abnormality. Automated exposure control was utilized to diminish radiation dose. Signer Name: Frank Grimm MD Signed: 05/29/2019 5:38 PM Workstation Name: [id number]
[2019-05-29] MEDS ORDERED: AMBIEN PO PRN (18:44)
[2019-05-29] MEDS ORDERED: NON-FORMULARY (Oxycodone Hcl [Oxycodone] 10 MG) PO PRN (18:45)
[2019-05-29] MEDS: ROXICODONE PO PRN (20:16)
[2019-05-29] MEDS: CARAFATE PO SCH (21:15)
[2019-05-29] MEDS: NEURONTIN PO SCH (21:15)
[2019-05-29] MEDS: PEPCID IV SCH (21:15)
[2019-05-29] MEDS: BENTYL PO SCH (21:15)
[2019-05-29] MEDS: LOPRESSOR PO SCH (21:15)
[2019-05-29] MEDS: SODIUM CHLORIDE FLUSH SYRINGE 10 ML IV SCH (21:16)
[2019-05-29] MEDS ORDERED: REMERON PO SCH (22:00)
[2019-05-30] MEDS ORDERED: MORPHINE IV ONE (02:55)
[2019-05-30 05:37] LABS: Basophils % (Auto) 0.5 % (0.0-1.8); Eosinophils # (Auto) 0.1 K/mm3 (0.0-0.4); Eosinophils % (Auto) 4.5 % (0.0-4.3); Hematocrit 33.5 % (30.3-42.9); Lymphocytes # (Auto) 1.3 K/mm3 (1.2-5.4); Mean Corpuscular HGB Conc 33 % (30-34); Mean Corpuscular Volume 106 fl (79-97); Monocytes # (Auto) 0.3 K/mm3 (0.0-0.8); Monocytes % (Auto) 10.1 % (0.0-7.3); Platelet Count 250 K/mm3 (140-440); Red Blood Count 3.16 M/mm3 (3.65-5.03); Red Cell Distribution Width 15.8 % (13.2-15.2)
[2019-05-30 06:09] LABS: Alanine Aminotransferase 29 units/L (7-56); Albumin 3.7 g/dL (3.9-5); BUN/Creatinine Ratio 6; Blood Urea Nitrogen 3 mg/dL (7-17); Calcium 8.6 mg/dL (8.4-10.2); Hemolysis Index 9
[2019-05-30] MEDS: PHENERGAN PO PRN ×2 (06:10→11:20)
[2019-05-30] MEDS: XANAX PO PRN ×2 (06:10→11:15)
[2019-05-30] MEDS: ROXICODONE PO PRN (08:06)
[2019-05-30] MEDS: NEURONTIN PO SCH (08:06)
--- NOTE | 2019-05-30 08:43 | Discharge Summary ---
Providers - Providers Date of Admission: 05/29/19 15:56 Date of discharge: 05/30/19 Attending physician: KRISTEN REA Primary care physician: [facility] Hospitalization Condition: Stable Hospital course: Patient is a 54 yo woman with a history of Gastric bypass, celiac disease, C. diffe colitis s/p fecal transplant x 2, hypertension, diverticulosis, IBS, SBO, GERD, anastomatic ulcers, chronic diarrhea, chronic pain syndrome with narcotic abuse and Ambien who presented to [facility] ED with n/v/epigastric pains/diarrhea. I asked patient about having an EGD because she refused last admission. Initially, patient stated she has not had an EGD in over a year but then I asked her where was she on 05/22/19 (because [place] aware says she received narcotics on that day). She reports being at [facility] and undergoing an EGD and GI doctor told her there was nothing they could do and she needed surgery but she refused Surgical evaluation. The GI doctor told patient that the opening was too small and she had poor blood supply to the stomach. We spoke at length. [facility] has optimized care and there is nothing more to offer her here. She needs to return to Dr. Day or follow up with [facility] as recommended. * CT abd/pelvis with contrast Impression: No significant abnormality Discharge Diagnoses: Chronic AGE: outpatient referral to GI Hypernatremia Hypokalemia S/p Gastric bypass in 2001 with H/o of Stoma ulcer, on protonix, Following up with Dr Chuy Day for possible revision outpt Hypertension According to [place] agricultural [place] aware patient has received the followin02/01/19 Oxycodone 5mg quantity of [address] Narcisa Arredondo 02/13/19 Oxycodone 5mg quantity of [address] Rajinder Arredondo 02/27/19 Oxycodone 5mg quantiy of [address] Rajinder Arredondo 03/02/19 Oxycodone 5mg quantity of [address] Rajinder Arredondo 03/10/19 Tylenol#3 quantity of [address] Ravi Saldana 03/29/19 Tylenol#3 quantity of [address] Solis Bennett Since last Hospitalization here: 04/06/19 Ambien 10mg quantity of 15 by Myself 04/11/19 Ambien 10 mg quantity of [address] Solis Bennett 04/11/19 Tylenol#3 quantity of [address] Solis Bennett 04/24/19 Lortab 5/325 quantity of [address] Frantz Bazzi 05/02/19 Tylenol#3 quantity of [address] Solis Bennett 05/08/19 Ambien 10 quantity of [address] Solis Bennett 05/22/19 Fiorect quantity [address] Bandar Ortiz 05/22/19 Tylenol#3 quantity of [address] Santiago Mitchell Suffice to say I will not be refilling any narcotics meds or Ambien. She should use only one doctor with a signed contract. It appears she is doctor/hospital shopping based upon [place] [employer] [place] aware Referral will be made for GI and pain Upon learning of her discharge she wanted oral gi cocktail and percocet prior to going home Disposition: DC-01 TO HOME OR SELFCARE Time spent for discharge: 32 minutes Core Measure Documentation - Palliative Care Palliative Care/ Comfort Measures: Not Applicable - Core Measures Any of the following diagnoses?: none - VTE Discharge Requirements Deep Vein Thrombosis/Pulmonary Embolism Present on Admission: No Has pt received <5 days of overlap therapy or INR<2.0: No Anticoagulant overlap therapy prescribed at discharge: No Contraindication No Overlap Therapy order at DC: Not Indicated Exam - Physical Exam Narrative exam: Gen: WDWN, NAD, Awake, Alert, Orientated HEENT: NCAT, EOMI, PERRL, OP Clear Neck: supple, no adenopathy, no thyromegaly, no JVD CVS/Heart: RRR, normal S1S2, pulses present bilaterally Chest/Lungs: CTA B, Symmetrical chest expansion, good air entry bilaterally GI/Abdomen: soft, diffuse tenderness, good bowel sounds, no guarding or rebound /Bladder: no suprapubic tenderness, no CVA or paraspinal tenderness Extermity/Skin: no c/c/e, no obvious rash MSK: FROM x 4 Neuro: CN 2-12 grossly intact, no new focal deficits Psych: calm - Constitutional Vitals: Temp Pulse Resp BP Pulse Ox 97.3 F L 63 18 123/75 99 05/30/19 04:22 05/30/19 04:22 05/30/19 04:22 05/30/19 04:22 07/30/19 04:22 Plan Activity: other (no strenous activity until cleared by GI) Diet: advance as tolerated Additional Instructions: 1) Make an appointment to see Dr. Chuy Day as soon as possible or Return to [facility]. 2) [facility]. Address: [address] [place] [address] [address], [place] [address]. Follow up with: STEPHEN PELAYO MD [Staff Physician] - 7 Days SAVOY ERIC MUNOZ MD [Primary Care Provider] - 3-5 Days CHUY DAY MD [Staff Physician] - 3 Days
[2019-05-30] MEDS ORDERED: POTASSIUM CHLORIDE PO ONE (08:45)
[2019-05-30] MEDS: LOPRESSOR PO SCH (09:52)
[2019-05-30] MEDS: CARAFATE PO SCH (09:52)
[2019-05-30] MEDS: BENTYL PO SCH (09:53)
[2019-05-30] MEDS: SODIUM CHLORIDE FLUSH SYRINGE 10 ML IV SCH (09:53)
[2019-05-30] MEDS: PEPCID IV SCH (09:53)
[2019-05-30] MEDS ORDERED: PROTONIX PO SCH (10:00)
[2019-05-30] MEDS ORDERED: NORVASC PO SCH (10:00)
[2019-05-30 12:02] VITALS: BP 124/83
[2019-05-30] MEDS ORDERED: ROXICODONE PO ONE (12:16)
== END 2019-05-30 13:00 | disposition home or self-care (01) ==
LOC: ED 12:19 → INTOOBSV 15:56 → 3A 15:56
PROVIDERS: ADMIT Internal Medicine; ATTEND Internal Medicine
DX: K21.9 Gastro-esophageal reflux disease without esophagitis (principal); K29.70 Gastritis, unspecified, without bleeding; K27.9 Peptic ulcer, site unspecified, unspecified as acute or chronic, without hemorrhage or perforation; I10 Essential (primary) hypertension; G89.4 Chronic pain syndrome; K52.9 Noninfective gastroenteritis and colitis, unspecified; E87.0 Hyperosmolality and hypernatremia; E87.6 Hypokalemia; Z88.5 Allergy status to narcotic agent; Z88.6 Allergy status to analgesic agent; Z88.8 Allergy status to other drugs, medicaments and biological substances; Z79.899 Other long term (current) drug therapy
CPT/HCPCS: 36415; 74177; 80053; 81001; 83690; 85025; 87116; 96361; 96372; 96374; 96375; 96376; 99284; G0378; J2270; J2405; J7030; Q0169; Q9967